=== PATIENT | female | born 1975 | race Caucasian/White ===

== ENCOUNTER 2020-04-01 15:33 | Outpatient (CLI) | payer OTHER, SELFPAY ==
--- NOTE | ~2020-04-01 | MM_ITS ---
EXAMINATION: MM screening frances BI w catarino HISTORY: Screening mammogram TECHNIQUE: Craniocaudal and mediolateral oblique 3-D tomosynthesis images were obtained and synthetic 2-D images were generated. CAD analysis was submitted and interpreted. COMPARISON: 03/21/2019, 03/18/2018 bilateral digital screening mammogram examinations BREAST PARENCHYMAL COMPOSITION: The breasts are extremely dense, which lowers the sensitivity of mamm ography. FINDINGS: There is a biopsy marker on the right There is no evidence of suspicious mass, calcificatio n, or architectural distortion to suggest malignancy in either breast. There has been no suspicious i nterval change. The patient history sheet indicates the patient can feel a lump in the left breast. For this reason, I would recommend a diagnostic left mammogram and left breast ultrasound, considering the dense breas t stroma. IMPRESSION: Patient feels a left breast lump; diagnostic left mammogram and left breast ultrasound examination ar e recommended BI-RADS Category 0: Incomplete: Needs additional imaging evaluation.. Reviewed, dictated and finalized at location A. IMPRESSION: Patient feels a left breast lump; diagnostic left mammogram and left breast ult rasound examination are recommended BI-RADS Category 0: Incomplete: Needs additional imaging evaluation..
== END 2020-04-01 15:34 | disposition home or self-care (01) ==
LOC: ANHIMG 15:35
PROVIDERS: PCP Family Medicine; Visit Provider Family Medicine
DX: Z12.31 Encounter for screening mammogram for malignant neoplasm of breast (principal)
CPT/HCPCS: 77063; 77067

== ENCOUNTER 2020-04-13 11:16 | Outpatient (CLI) | payer OTHER, SELFPAY ==
--- NOTE | ~2020-04-13 | MMUS_ITS ---
EXAMINATION: MM diagnostic mammo unilat LT, US breast LT limited HISTORY: Palpable left breast abnormality TECHNIQUE: Additional 3-D tomosynthesis images of the left breast were performed and synthetic 2-D im ages were generated. CAD analysis was submitted and interpreted. High resolution left breast ultrasou nd was performed. COMPARISON: Comparison to multiple prior studies sequentially, with oldest reviewed study dated 01/2017. FINDINGS: MAMMOGRAPHIC FINDINGS: The breasts are extremely dense, which lowers the sensitivity of mammography. There are no suspicious masses, calcifications or architectural distortion in the left breast to suggest malignancy. ULTRASOUND: Limited left breast ultrasound demonstrates an oval circumscribed hypoechoic mass at 11:00, 3 cm from the nipple without internal vascularity or posterior features measuring 4.5 x 3 x 4 mm. No other mas ses are identified. IMPRESSION: 1. Benign-appearing 4.5 mm hypoechoic left breast mass at 11:00, 3 cm from the nipple. This is likely a benign complicated cyst or intramammary lymph node. 2. Recommend 6 month follow-up left breast ultrasound. BI-RADS category 3, probably benign findings. Reviewed, dictated and finalized at location A. IMPRESSION: 1. Benign-appearing 4.5 mm hypoechoic left breast mass at 11:00, 3 cm from the nipple. This is likely a benign complicated cyst or intramammary lymph node. 2. Recommend 6 month follow-up left breast ultrasound. BI-RADS category 3, probably benign findings.
== END 2020-04-13 11:17 | disposition home or self-care (01) ==
PROVIDERS: PCP Family Medicine; Visit Provider Family Medicine
DX: R92.8 Other abnormal and inconclusive findings on diagnostic imaging of breast (principal)
CPT/HCPCS: 76642; 77065

== ENCOUNTER → 2021-07-22 13:26 | Outpatient (CLI) | payer OTHER, SELFPAY ==
--- NOTE | ~2021-07-22 | MM_ITS ---
EXAMINATION: MM screening frances BI w catarino HISTORY: Screening mammogram TECHNIQUE: Craniocaudal and mediolateral oblique 3-D tomosynthesis images were obtained and synthetic 2-D images were generated. CAD analysis was submitted and interpreted. COMPARISON: 04/13/2020 diagnostic left mammogram and limited left breast ultrasound 04/01/2020, 03/21/2019, 03/18/2018 bilateral digital screening mammogram examinations BREAST PARENCHYMAL COMPOSITION: The breasts are extremely dense, which lowers the sensitivity of mamm ography. FINDINGS: There is a biopsy marker on each side. History of bilateral benign breast biopsies There is no evidence of suspicious mass, calcification, or architectural distortion to suggest malignancy in either breast. There has been no suspicious interval change. IMPRESSION: 1. No mammographic evidence of malignancy. 2. Recommend routine screening mammography in one year. BI-RADS Category 2: Benign finding(s). Reviewed, dictated and finalized at location A.
== END ==
PROVIDERS: Visit Provider Obstetrics & Gynecology
DX: Z12.31 Encounter for screening mammogram for malignant neoplasm of breast (principal)
CPT/HCPCS: 77063; 77067

== ENCOUNTER 2022-08-29 10:12 | Outpatient (CLI) | payer OTHER, SELFPAY ==
--- NOTE | ~2022-08-29 | MM_ITS ---
EXAMINATION: MM screening frances BI w catarino HISTORY: Screening TECHNIQUE: Craniocaudal and mediolateral oblique 3-D tomosynthesis images were obtained and synthetic 2-D images were generated. CAD analysis was submitted and interpreted. COMPARISON: Comparison to multiple prior studies sequentially, with oldest reviewed study dated 01/2017. BREAST PARENCHYMAL COMPOSITION: The breasts are extremely dense, which lowers the sensitivity of mamm ography. FINDINGS: There is no evidence of suspicious mass, calcification, or architectural distortion to sugg est malignancy in either breast. There has been no suspicious interval change. IMPRESSION: 1. No mammographic evidence of malignancy. 2. Recommend routine screening mammography in one year. BI-RADS Category 1: Negative Reviewed, dictated and finalized at location A.
== END 2022-08-29 10:13 | disposition home or self-care (01) ==
PROVIDERS: PCP Nurse Practitioner Family; Visit Provider Obstetrics & Gynecology
DX: Z12.31 Encounter for screening mammogram for malignant neoplasm of breast (principal)
CPT/HCPCS: 77063; 77067

== ENCOUNTER 2023-11-06 10:45 | Outpatient (CLI) | payer OTHER, SELFPAY ==
--- NOTE | ~2023-11-06 | MMUS_ITS ---
EXAMINATION: MM diagnostic frances BI w catarino, US breast BI complete HISTORY: Bilateral breast pain TECHNIQUE: ML, MLO and CC 3-D tomosynthesis images of both breasts were performed and synthetic 2-D i mages were generated. CAD analysis was submitted and interpreted. High resolution complete bilateral breast ultrasound examination including all 4 quadrants and subareolar areas was performed. COMPARISON: 08/29/2022, 07/22/2021 bilateral screening mammogram examinations BREAST PARENCHYMAL COMPOSITION: The breasts are extremely dense, which lowers the sensitivity of mamm ography. FINDINGS: MAMMOGRAPHIC FINDINGS: There are bilateral breast biopsy marker; history of bilateral benign breast biopsies. No suspicious mass, architectural distortion, malignant calcification, skin thickening or retraction or significant new or developing density of either breast is detected ULTRASOUND: Right breast: 2:00 2 cm from nipple: Parallel circumscribed hypoechoic lesion measuring approximately 6.2 x 2.7 x 5 .3 mm, with some posterior shadowing. No internal vascularity is noted. The posterior shadowing is of concern. Consider ultrasound-guided biopsy. 9:00 3 cm from nipple: Parallel circumscribed oval 8.2 x 4.8 x 7.1 mm sonolucency with through transm ission posterior enhancement, most consistent with benign simple cyst. Left breast: 1:00 3 cm from nipple: Minimally septated 9.6 x 10.4 x 4.3 mm cyst, with through transmission posteri or enhancement, benign in appearance 11:00 5 cm from nipple: Parallel circumscribed 8.2 x 3.5 x 7.3 mm hypoechoic lesion without internal vascularity or posterior shadowing, benign in appearance IMPRESSION: Shadowing right breast 2:00 6.2 x 2.7 x 5.3 mm lesion; ultrasound-guided biopsy is recommended BI-RADS Category 4: Suspicious abnormality; biopsy should be considered Dr. Dalton telephoned the report on 11/06/2023 at 1510 hours to voicemail at [phone]. Reviewed, dictated and finalized at location A. NING DEVELOPMENT SPECIALIST IMPRESSION: Shadowing right breast 2:00 6.2 x 2.7 x 5.3 mm lesion; ultrasound-guided biopsy is recommended BI-RADS Category 4: Suspicious abnormality; biopsy should be considered Dr. Dalton telephoned the report on 11/06/2023 at 1510 hours to voicemail at [phone]. IMPRESSION: Shadowing right breast 2:00 6.2 x 2.7 x 5.3 mm lesion; ultrasound-guided biopsy is recommended BI-RADS Category 4: Suspicious abnormality; biopsy should be considered Dr. Dalton telephoned the report on 11/06/2023 at 1510 hours to voicemail at [phone].
== END 2023-11-06 10:46 | disposition home or self-care (01) ==
LOC: ANHIMG 10:48
PROVIDERS: PCP Nurse Practitioner Family; Visit Provider Physician Assistant
DX: R92.8 Other abnormal and inconclusive findings on diagnostic imaging of breast (principal); N64.4 Mastodynia
CPT/HCPCS: 76641; 77062; 77066; G0279

== ENCOUNTER 2025-07-03 09:49 | Outpatient (CLI) | payer OTHER, SELFPAY ==
--- NOTE | ~2025-07-03 | US_ITS ---
EXAMINATION: US pelvic complete w TV INDICATION: Menometrorrhagia Comparison:Excessive and frequent menstruation TECHNIQUE: Multiple transabdominal and endovaginal sonographic images of the pelvis performed. FINDINGS: The uterus measures 9.9 x 5 x 5.8 cm. The endometrial complex measures 11 mm possible endometrial mass measuring 11 mm. There is a hypoechoic 11 mm mass abutting the endometrium. Anteriorly there is a 1.9 cm fibroid. The right ovary measures 2.6 x 1.9 x 2.3 cm and the left ovary measures 4.3 x 2.5 x 3.6 cm. There are small follicles in each ovary. Normal doppler signal in both ovaries. There is no free fluid in the pelvis. There are no abnormal masses seen on either side. IMPRESSION: 1. Hypoechoic mass abutting or involving the endometrium measuring 11 mm. Differential diagnosis includes submucosal fibroid and polyp. 2: Uterine fibroid anteriorly measuring 1.9 cm. Reviewed, dictated and finalized at location O. IMPRESSION: 1. Hypoechoic mass abutting or involving the endometrium measuring 11 mm. Diffe rential diagnosis includes submucosal fibroid and polyp. 2: Uterine fibroid anteriorly measuring 1.9 cm.
== END 2025-07-03 09:50 | disposition home or self-care (01) ==
PROVIDERS: PCP Obstetrics & Gynecology; Visit Provider Obstetrics & Gynecology
DX: N92.1 Excessive and frequent menstruation with irregular cycle (principal); D25.9 Leiomyoma of uterus, unspecified
CPT/HCPCS: 76830; 76856

== ENCOUNTER 2025-08-10 08:12 | Outpatient (CLI) | payer OTHER, SELFPAY ==
--- OUTSIDE RECORDS SUMMARY | 2003-08-31 19:00 | XMS_ITS | Continuity of Care Document ---
Author Organization [facility] Address [address] [place] [address] [address] [place] [address] Phone Care Team Providers Care Prepress Technician Name Role Phone Eden OD, Som Unavailable Unavailable Advance Directives Directive Yes / No Effective Date File Name No Information Encounters Encounter Description Practice Location Reason(s) For Visit Diagnoses Date Provider Providers Copied on Encounter [facility], [address], [place], [place], [id number], [place] tel:[phone] [facility] [place] No Information Aug- 1-200 3 Eden OD Som. [address] [facility] [place] , [address], [place], [address], [place]. tel:[phone] Family History Family Member Type Diagnosis Age At Onset No Information Payers Payer name Insurance type Covered alliance party ID Authoriza tion(s) No Information Social [...]
--- OUTSIDE RECORDS SUMMARY | 2025-08-10 08:21 | XMS_ITS | Encounter Summary ---
Author Organization [facility] Address [address] [place] [address] Care Team Providers Care Cdc Associate Name Role Phone Nik Trujillo MD Primary Care Provider [phone] Encounter Details Date Type Department Care Team (Late st Contact Info) Description 09/27/2020 Lab Requisition [facility] DermPath Lab [address] [place] [address] Mauricio Norman MD [address] [facility] [place] [address] Social History Tobacco Use Types Packs/Day Years Used Date Smoking Tobacco: Never Assessed Comments Unknown Sex and Gender Information Value Date Recorded Sex Assigned at Not on file Legal Sex Female 3:29 PM 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 Gender Identity Not on file Sexual Orientation Not on file documented as of this encounter Plan of Treatment Not on file documented as of this encounter Procedures Procedure Name Priority Date/Time Associated Diagnosis Comments DERMATOPATHOLOGY Routine 09/23/2020 12:0 0 AM SOCIAL 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 documented in this encounter Results * DERMATOPATHOLOGY (09/23/2020 12:00 AM SOCIAL 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) Case Report Dermatopathology Report Case: [id number] Authorizing Provider: Mauricio Norman MD Collected: 09/23/2020 12:00 AM Ordering Location: [facility] DermPath Lab Received: 09/27/2020 06:44 AM Pathologist: Alyssa Reid MD Specimen: Skin, left mid back 0 2:41 PM [facility] DERMATOPATHOLOGY LABORATORY Final Diagnosis Specimen A. SKIN, left mid back: LENTIGINOUS MELANOCYTIC NEVUS, COMPOUND TYPE, IRRITATED (COMPOUND MELANOCYTIC NEVUS WITH ARCHITECTURAL DISORDER) (D22.5) 0 2:41 PM [facility] DERMATOPATHOLOGY LABORATORY at 1441 SOCIAL 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 Clinical History Nevus vs MM. Path#[id number] 0 2:41 PM [facility] DERMATOPATHOLOGY LABORATORY Gross Description Specimen A: Received is one formalin filled container labeled with the patient's name and designated left mid back. The specimen consists of a shave biopsy measuring 4x3x1 mm. Jar 0. 0 2:41 PM [facility] DERMATOPATHOLOGY LABORATORY Microscopic Description Specimen A. SKIN, left mid back: This is a compound nevus. There is melanin pigment in the stratum corneum. There is architectural disorder characterized by a lentiginous proliferation of melanocytes between irregular nevus nests of cells along the dermal epidermal junction. There is underlying fibroplasia of the papillary dermis. The intradermal component is bland in appearance and matures with depth. (Compound Maxi's Nevus or Compound Dysplastic Nevus) 0 2:41 PM [facility] DERMATOPATHOLOGY LABORATORY Disclaimer An external and internal positive and negative controls are appropriate for the histochemical, immunohistochemical and immunofluorescence stain(s) in this case (if any), except where stated explicitly. The performance characteristics of the stain(s) cited in this report were developed and its performance characteristic determined by the Dermatopathology Laboratory at [facility], directed by Dr. Audrey Reid. These tests need not be, and therefore are not, approved by the [place] Food and Drug Administration. The tests are used for clinical purposes. Billing Codes Specimen Charges Stain Charges 40292 1 0 2:41 PM [facility] DERMATOPATHOLOGY LABORATORY Embedded Images 0 2:41 PM [facility] DERMATOPATHOLOGY LABORATORY Pathology/Cytolog y TISSUE SPECIMEN FROM SKIN / Unknown 09/23/2020 09/27/2020 6:44 AM [facility] us Mauricio Norman MD LAB - PATHOLOGY/CYTOLOGY ORDER SAMI Final Result DERMATOPATHOLOGY LABORATORY [facility] - Department of Dermatology [facility] Medicine [facility], 3[address] [phone] documented in this encounter Visit Diagnoses Not on filedocumented in this encounter Care Teams Cdc Associate Relationship Specialty Start Date End Date Nik Trujillo MD [address] [address] PCP - General 09/24/20 documented as of this encounter
--- OUTSIDE RECORDS SUMMARY | 2025-08-10 08:22 | XMS_ITS | Patient Health Record ---
Author Organization [facility] Address [address] [place], [place] [address] Care Team Providers Care Clinical Dental Technician Name Role Phone ISABELLA Patel Unavailable [phone] Reason For Referral No Information Medications Medication SIG (Take, Route, Frequency, Duration) Notes Start Date End Date Status Nabumetone 500 MG Oral Tablet ORAL nabumetone 500 MG Oral TabletOriginal Medicationnabumetone 500 MG Oral Tablet *Reorder from Social 2 Step for eRx and Interaction Alerts* 09/19/2012 Active Plan Of Treatment No Information Insurance Providers Payer Name Payer Address Payer Phone Subscriber Number Group Number Insured Name Patient Relationship to Insured Coverage Start Date Coverage End Date [facility] [address] [address] [place] [id number] GILBERT ZHANG Self - patient is the insured
--- OUTSIDE RECORDS SUMMARY | 2025-08-10 08:22 | XMS_ITS | Clinical Summary ---
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 Gender Identity Not on file Sexual Orientation Not on file Plan of Treatment Health Maintenance Due Date Last Done Comments DTAP/TDAP/TD VACCINES (1 - Tdap) 01/15/1995 HEPATITIS B VACCINES (1 of 3 - 19+ 3-dose series) 01/15/1995 HPV/Cotest (21-29) 01/15/1997 CERVICAL CANCER SCREENING 01/15/2006 HPV/Cotest (30-65) 01/15/2006 PAP SMEAR 01/15/2006 COLORECTAL SCREENING 01/15/2021 Colorectal Cancer Screening 01/15/2021 FIT-DNA Q 3 years 01/15/2021 FIT/FOBT Q 1 year 01/15/2021 Flex Sig/CT Colonography Q 5 years 01/15/2021 BREAST CANCER SCREENING 11/06/2024 11/06/20 23, 07/22/2021, 04/13/2020 INFLUENZA VACCINE (#1) 2025 Procedures Procedure Name Priority Date/Time Associated Diagnosis Comments MAMMO DIAG UNI LEFT 3D SRIKANTH W OR WO CAD Routine 11/06/2023 10:18 AM WAREHOUSE OPERATOR from Last 3 Months or Most Recently Relevant to Health Maintenance Results * MAMMO 3D SRIKANTH DIAGNOSTIC UNI LT W OR WO CAD (11/06/2023 10:18 AM WAREHOUSE OPERATOR) Anatomical Region Laterality Modality Breast Left Mammography Mikey SEXTON MAMMO ORDERABLES Edited Result - Final from Last 3 Months or Most Recently Relevant to Health Maintenance
--- OUTSIDE RECORDS SUMMARY | 2025-08-10 08:22 | XMS_ITS | Clinical Summary ---
Author Organization [facility] Address [address] [place] [address] Care Team Providers Care Manager Mechanical Maintenance Name Role Phone Nik Trujillo MD Primary Care Provider [phone] Source Comments [facility] Affiliates and Associated Physician Practices is amultiple site organization consisting of ambulatory clinics and hospital sitesin [place], [place], [place] and [place]. This disclosure is being madepursuant to the Care Everywhere program and may not contain all information available regarding this patient. 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 Gender Identity Not on file Sexual Orientation Not on file Plan of Treatment Health Maintenance Due Date Last Done Comments COLOGUARD (AGES 45-75) - COL ON CA SCREENING 1976 COLON MONITORING 1976 COLONOSCOPY - COLON CA SCREENING 1976 CT COLONOGRAPHY - COLON CA SCREENING 1976 Colorectal Cancer Screening 1976 FIT - COLON CA SCREENING 1976 FLEX SIG - COLON CA SCREENING 1976 LIPID TESTING 1976 MAMMOGRAM 1976 HIV SCREENING 01/15/1991 HEPATITIS C SCREENING 01/11/1994 DTAP/TDAP/TD VACCINES (1 - Tdap) 01/15/1995 HEPATITIS B VACCINE (1 of 3 - 19+ 3-dose series) 01/15/1995 DEPRESSION SCREENING 11/12/2024 COVID-19 VACCINE (1 2023-2 5 season) 2025 INFLUENZA VACCINE (#1) 2025 ZOSTER VACCINE (1 of 2) 01/15/2026 HIB VACCINE Aged Out No longer eligi ble based on patient's age to complete this topic HPV VACCINE Aged Out No longer eligi ble based on patient's age to complete this topic MENINGOCOCCAL (Group B) VACC INE SHARED DECISION-MAKING Aged Out No longer eligibl e based on patient's age to complete this topic MENINGOCOCCAL GROUPS A/C/Y/W VACCINE Aged Out No longer eligible b ased on patient's age to complete this topic Insurance [facility] Care Teams Manager Mechanical Maintenance Relationship Specialty Start Date End Date Nik Trujillo MD [address] [address] PCP - General 09/24/20
[2025-08-10 08:44] LABS: Hematocrit 29.4 % (37.0-47.0); Hemoglobin 8.4 g/dL (12.0-15.0)
== END 2025-08-10 08:13 | disposition home or self-care (01) ==
LOC: ANHLAB 08:14
PROVIDERS: PCP Family Medicine; Visit Provider Obstetrics & Gynecology
DX: D50.0 Iron deficiency anemia secondary to blood loss (chronic) (principal)
CPT/HCPCS: 36415; 85014; 85018

== ENCOUNTER 2025-08-12 00:49 | Day surgery (SDC) | payer OTHER, SELFPAY ==
--- OUTSIDE RECORDS SUMMARY | 2003-08-31 19:00 | XMS_ITS | Continuity of Care Document ---
Author Organization [facility] Address [id number] [place] [address] [address] [place] [address] Phone Care Team Providers Care Legal Instruments Examiner Name Role Phone Eden OD, Som Unavailable Unavailable Advance Directives Directive Yes / No Effective Date File Name No Information Encounters Encounter Description Practice Location Reason(s) For Visit Diagnoses Date Provider Providers Copied on Encounter [facility], [address], [place], [place], [id number], [place] tel:[phone] [facility] [place] No Information Aug- 1-200 3 Eden OD Som. [address] [facility] [place] , [address], [place], [address], [place]. tel:[phone] Family History Family Member Type Diagnosis Age At Onset No Information Payers Payer name Insurance type Covered constitution party ID Authoriza tion(s) No Information Social History Type Description Quantity Date Captured Comments Sex Female Smoking Status No Information Chief Complaint And Reason For Visit No Information Reason For Referral Reason For Referral No Information History Of Present Illness Encounter Date Complaint History Of Prese nt Illness No Information Functional Status Date Functional Assessmen t No Information Instructions Date Instruction Additional Infor mation No Information Assessments Type Assessment Date No Information Patient Care Teams Name Effective Dates (start - stop) Status Members No Information
[2025-07-30 09:38] VITALS: BMI 20.5
--- NOTE | 2025-07-30 10:12 | PC.NURSE ---
[facility] has started construction of its new state of the art ER which will open Spring 2026. With this, we anticipate parking may be a challenge for some our surgical patients and families. Parking spaces are limited but are available for all Surgical, obstetrics, and ER patients sharing this lot. If you arrive and find you are having a hard time finding a parking space, please note that we understand the challenges, please drive around the hospital and park near Hospital Entrance 1. When you enter this entrance, you can ask a volunteer to direct or take you back to the surgical waiting area to check in. We appreciate everyone?s understanding of these expected challenges while we build for your future. Report to the Outpatient Waiting Room, entrance under the green pavilion located off [address], at time _1200_ on date _[id number]_. Planned Procedure Time: _2pm_.? Time changes happen often and if your time is changed the preop area will call you the afternoon before. - You and your visitor will be asked to self-screen and do not enter if you have any COVID symptoms. Please call surgeon if you need to reschedule. - A mask is optional within the hospital at this time. Patients may have clear liquids (water, carbonated beverages, clear teas, apple juice) until 3 hours prior to surgery with a maximum of 20 ounces. - No food from midnight until time of surgery and no smoking, or chewing tobacco (or any form of nicotine). No chewing gum, candy or mints. Take only the following medications with a SIP of water on the morning of surgery: DO NOT STOP ANY OF YOUR OTHER PRESCRIPTION MEDICATIONS PRIOR TO SURGERY EXCEPT THE FOLLOWING Hold all vitamins and supplements for 3 days per anesthesiologist. Medications to discontinue per physician Date to take last [id number]___ Please no make-up, nail yoruba, hairspray, perfume, deodorant, or body powder the day of surgery.? No jewelry (including any body piercings) or valuables the day of surgery, leave them at home.? Please take a shower or bath the night before, or the morning of, surgery with an antibacterial soap.? Wear comfortable, loose fitting clothing.? - Jewelry must be removed prior to entering the operating room.? Rings and piercings that are not removed may be cut off. - The hospital will not accept responsibility for valuables.? - Please leave all valuables, including medications, at home the day of surgery. If you are going home after surgery, a licensed helper/driver must drive you home.? - NO public transportation without another adult if you receive anesthesia. - We recommend that an adult stay with you for 24 hours following discharge. - We also recommend that you do not drive, make important decision, drink alcoholic beverages, or take any drugs that were not prescribed by your health care provider for at least 24 hours after your discharge time. Follow any additional instructions given to you from your surgeon. Telephone instructions given to __Amrita__and asked if any additional questions and then verbalized understanding. Patient advised to call surgeon office or pre surgery nurse liaison [phone] if any additional questions.
--- OUTSIDE RECORDS SUMMARY | 2025-08-12 00:52 | XMS_ITS | Patient Health Record ---
Author Organization [facility] Address [address] [place], [place] [address] Care Team Providers Care Marine Equipment Sales Engineer Name Role Phone ISABELLA Patel Unavailable [phone] Reason For Referral No Information Medications Medication SIG (Take, Route, Frequency, Duration) Notes Start Date End Date Status Nabumetone 500 MG Oral Tablet ORAL nabumetone 500 MG Oral TabletOriginal Medicationnabumetone 500 MG Oral Tablet *Reorder from [employer] for eRx and Interaction Alerts* 09/19/2012 Active Plan Of Treatment No Information Insurance Providers Payer Name Payer Address Payer Phone Subscriber Number Group Number Insured Name Patient Relationship to Insured Coverage Start Date Coverage End Date [facility] [address] [address] [place] [address] [id number] GILBERT ZHANG Self - patient is the insured
--- OUTSIDE RECORDS SUMMARY | 2025-08-12 00:52 | XMS_ITS | Clinical Summary ---
Author Organization [facility] Address [address] [address] Phone Care Team Providers Care Plasma Processing Centrifuge Operator Name Role Phone Unavailable Primary Care Provider Unavailabl e Social History Tobacco Use Types Packs/Day Years Used Date Smoking Tobacco: Never Assessed Comments Unknown Sex and Gender Information Value Date Recorded Sex Assigned at Not on file Legal Sex Female 9:27 AM HR COORDINATOR Gender Identity Not on file Sexual Orientation [...] OR WO CAD Routine 11/06/2023 10:18 AM HR COORDINATOR from Last 3 Months or Most Recently Relevant to Health Maintenance Results * MAMMO 3D SRIKANTH DIAGNOSTIC UNI LT W OR WO CAD (11/06/2023 10:18 AM HR COORDINATOR) Anatomical Region Laterality Modality Breast Left Mammography Mikey SEXTON MAMMO ORDERABLES Edited Result - Final from Last 3 Months or Most Recently Relevant to Health Maintenance
--- OUTSIDE RECORDS SUMMARY | 2025-08-12 00:52 | XMS_ITS | Clinical Summary ---
Author Organization [facility] Address [address] [place] [address] Care Team Providers Care Latin American Studies Professor Name Role Phone Zachary Bennett MD Primary Care Provider [phone] Allergies No known active allergies Medications ofloxacin 0.3 % ophthalmic solution INSTILL 1 DROP INTO BOTH EYES 4 TIMES A DAY FOR 7 DAYS. 02/14/2020 Active Active Problems No known active problems Family History Medical History Relation Comments Hyperlipidemia Father Hypertension Father Hypertension Mother Relation Status Comments Father Alive Mother Alive Social History Tobacco Use Types Packs/Day Years Used Date Smoking Tobacco: Never Smokeless Tobacco: Never Alcohol Use Standard Drinks/Week Comments Not Currently 0 (1 standard drink = 0.6 oz pur e alcohol) PHQ-2 Answer Date Recorded PHQ-2 Score - If the patient scores above 3, please move on to questions 3-9 0 02/28/2021 Comments Unknown Sex and Gender Information Value Date Recorded Sex Assigned at Not on file Legal Sex Female 4:14 PM CDT Gender Identity Not on file Sexual Orientation Not on file Last Filed Vital Signs Vital Sign Reading Time Taken Comments Blood Pressure 121/73 02/28/2021 10:54 AM CDT Pulse 66 02/01/2021 9:39 AM CDT Temperature 36.7 C (98 F) 02/28/2021 10:24 AM CDT Respiratory Rate 18 02/01/2021 9:39 AM CDT Oxygen Saturation 99% 02/01/2021 9:39 AM CDT Inhaled Oxygen Concentration - - Weight 55.8 kg (123 lb) 02/28/2021 10:24 AM CDT Height 165.1 cm (5' 5) 02/28/2021 10:24 AM CDT Body Mass Index 20.47 02/28/2021 10:24 AM CDT Plan of Treatment Health Maintenance Due Date Last Done Comments Cervical Cancer Screening Pa p Smear (Age 30 to 64) Every 3 Years 1976 Colorectal Cancer Screening Colonoscopy (10 Years) 1976 Annual Physical 01/15/1979 Hepatitis C 01/15/1994 DTaP, Tdap and Td Vaccines ( 1 - Tdap) 01/15/1995 Hepatitis B Vaccines (1 of 3 - 19+ 3-dose series) 01/15/1995 Cervical Cancer Screening Pa p with HPV Testing (Age 30 to 64) Every 5 Years 01/15/2006 Cervical Cancer Screening with HPV 01/15/2006 Mammogram Screening 2016 COVID-19 Vaccine (2023-2 5 season) 2025 Meningococcal B Vaccine Aged Out No l onger eligible based on patient's age to complete this topic Meningococcal Vaccine Aged Out No miranda bettie eligible based on patient's age to complete this topic Pneumococcal Vaccine: Pediat rics (0 to 5 Years) and At-Risk Patients (6 to 49 Years) Aged Out No longer eligible b ased on patient's age to complete this topic RSV Immunizations Under 20 Months Aged Out No longer eligible based on patient's age to complete this topic Insurance [facility] Care Teams Latin American Studies Professor Relationship Specialty Start Date End Date Zachary Bennett MD [address] [place] [address] PCP - General OBGYN 02/01/21
--- OUTSIDE RECORDS SUMMARY | 2025-08-12 00:52 | XMS_ITS | Encounter Summary ---
Author Organization [facility] Address [address] [place] [address] Care Team Providers Care Equipment Operator/Laborer/Supervisor Name Role Phone Nik Trujillo MD Primary Care Provider Encounter Details Date Type Department Care Team (Late st Contact Info) Description 09/27/2020 Lab Requisition [facility] DermPath Lab [address] [place] [address] Mauricio Norman MD [address] [place] [address] Social History Tobacco Use Types Packs/Day Years Used Date Smoking Tobacco: Never Assessed Comments Unknown Sex and Gender Information Value Date Recorded Sex Assigned at Not on file Legal Sex Female 3:29 PM OPERATIONS PROJECT MANAGER Gender Identity Not on file Sexual Orientation Not on file documented as of this encounter Plan of Treatment Not on file documented as of this encounter Procedures Procedure Name Priority Date/Time Associated Diagnosis Comments DERMATOPATHOLOGY Routine 09/23/2020 12:0 0 AM OPERATIONS PROJECT MANAGER documented in this encounter Results * DERMATOPATHOLOGY (09/23/2020 12:00 AM OPERATIONS PROJECT MANAGER) Case Report Dermatopathology Report Case: [id number] Authorizing Provider: Mauricio Norman MD Collected: 09/23/2020 12:00 AM Ordering Location: [facility] Derm[facility] Lab Received: 09/27/2020 06:44 AM Pathologist: Alyssa Reid MD Specimen: Skin, left mid back 0 2:41 PM [facility] DERMATOPATHOLOGY LABORATORY Final Diagnosis Specimen A. SKIN, left mid back: LENTIGINOUS MELANOCYTIC NEVUS, COMPOUND TYPE, IRRITATED (COMPOUND MELANOCYTIC NEVUS WITH ARCHITECTURAL DISORDER) (D22.5) 0 2:41 PM [facility] DERMATOPATHOLOGY LABORATORY at [address]41 OPERATIONS PROJECT MANAGER Clinical History Nevus vs MM. Path#[id number] 0 2:41 PM [facility] DERMATOPATHOLOGY LABORATORY Gross Description Specimen A: Received is one formalin filled container labeled with the patient's name and designated left mid back. The specimen consists of a shave biopsy measuring 4x3x1 mm. Jar 0. 0 2:41 PM [facility] DERMATOPATHOLOGY LABORATORY Microscopic Description [...] or Compound Dysplastic Nevus) 0 2:41 PM [facility] DERMATOPATHOLOGY LABORATORY Disclaimer An external and internal positive and negative controls are appropriate for the histochemical, immunohistochemical and immunofluorescence stain(s) in this case (if any), except where stated explicitly. The performance characteristics of the stain(s) cited in this report were developed and its performance characteristic determined by the Dermatopathology Laboratory at [facility], directed by Dr. Audrey Reid. These tests need not be, and therefore are not, approved by the [place] Food and Drug Administration. The tests are used for clinical purposes. Billing Codes Specimen Charges Stain Charges 49820 1 0 2:41 PM [facility] DERMATOPATHOLOGY LABORATORY Embedded Images 0 2:41 PM [facility] DERMATOPATHOLOGY LABORATORY Pathology/Cytolog y TISSUE SPECIMEN FROM SKIN / Unknown 09/23/2020 09/27/2020 6:44 AM [facility] us Mauricio Norman MD LAB - PATHOLOGY/CYTOLOGY ORDER SAMI Final Result DERMATOPATHOLOGY LABORATORY [facility] - Department of Dermatology [facility] Medicine [facility] [phone] documented in this encounter Visit Diagnoses Not on filedocumented in this encounter Care Teams Equipment Operator/Laborer/Supervisor Relationship Specialty Start Date End Date Nik Trujillo MD [address] [address] PCP - General 09/24/20 documented as of this encounter
--- OUTSIDE RECORDS SUMMARY | 2025-08-12 00:52 | XMS_ITS | Data Portability ---
Author Organization [facility], Main Office Address [address] [place] [address] Assessment No assessment recorded. Plan of Treatment Reminders Order Date Submit Date Provider Last Modified By Organization Details Last Modified Time Details Appointments None record ed. Lab None record ed. Referral None record ed. Procedures None record ed. Surgeries None record ed. Imaging None record ed. Medication Orders None record ed. Patient TargetsNo targets recorded. Patient InstructionsNo instructions recorded. Reason for Referral None Reported. Results Created Date Observation Date Name Description Value Unit Range Abnormal Flag Note LastModifiedBy Organization Detail LastModifiedTime 01/21/20 21 01/20/2021 urina lysis , dipst ick Leukocytes (reference range: negative alan/ l) Trace Not Available [address] , [address], [place], [address], 01/20/2021 09:51:39 01/21/20 21 01/20/2021 urina lysis , dipst ick Nitrite (reference rage: negative mg/dl) negati ve Not Available [address], [place], [address], 01/20/2021 09:51:39 01/21/20 21 01/20/2021 urina lysis , dipst ick Urobilinogen (reference range: 0.2-1 mg/dl) 0.2 Not Available [address], [place], [address], 01/20/2021 09:51:39 03/11/01/20/2021 urina lysis , dipst ick Protein (reference range: negative mg/dl) Negati ve Not Available [address] , [address], [place], [address], 01/20/2021 09:51:39 01/21/20 21 01/20/2021 urina lysis , dipst ick pH (reference range: 5-7) 6.0 Not Available [address] , [address], [place], [address], 01/20/2021 09:51:39 01/21/20 21 01/20/2021 urina lysis , dipst ick Blood (reference range: negative Alfredito/ l) Small Not Available [address] , [address], [place], [address], 01/20/2021 09:51:39 01/21/20 21 01/20/2021 urina lysis , dipst ick Specific [place] (reference range: 1.005-1.030) 1.020 Not Available [address] , [address], [place], [address], 01/20/2021 09:51:39 01/21/20 21 01/20/2021 urina lysis , dipst ick Ketone (reference range: negative mg/dl) Negati ve Not Available [address] , [address], [place], [address], 01/20/2021 09:51:39 01/21/20 21 01/20/2021 urina lysis , dipst ick Bilirubin (reference range: negative mg/dl) Negati ve Not Available [address] , [address], [place], [address], 01/20/2021 09:51:39 01/21/20 21 01/20/2021 urina lysis , dipst ick Glucose (reference range: negative mg/dl) Negati ve Not Available [address] , [address], [place], [address], 01/20/2021 09:51:39 01/21/20 21 01/20/2021 urina lysis , dipst ick Appearance Clear Not Available [address] , [address], [place], [address], 01/20/2021 09:51:39 01/21/20 21 01/20/2021 urina lysis , dipst ick Color Yellow Not Available [address] , [address], [place], [address], 01/20/2021 09:51:39 02/03/20 21 02/03/2021 lipid panel , serum cholesterol, total 148 mg/dL 100-19 9 Not Available [facility] ([facility]) [address] [place], [address], 02/03/2021 04:07:57 02/03/20 21 02/03/2021 lipid panel , serum triglyceride s 54 mg/dL 0-149 Not Available [facility] ([facility]) [address] [facility], [place], [address], 02/03/2021 04:07:57 02/03/20 21 02/03/2021 lipid panel , serum HDL cholesterol 77 mg/dL >39 Not Available [facility] ([facility]) [address] [place], [address], 02/03/2021 04:07:57 02/03/20 21 02/03/2021 lipid panel , serum VLDL cholesterol sarah 12 mg/dL 5-40 Not Available [facility] ([facility]) [address] [place], [address], 02/03/2021 04:07:57 02/03/20 21 02/03/2021 lipid panel , serum LDL chol calc ([facility]) 59 mg/dL 0-99 Not Available [facility] ([facility]) [address] [place], [address], 02/03/2021 04:07:57 02/03/20 21 02/03/2021 lipid panel , serum comment: director software quality assurance Not Available [facility] ([facility]) [address] [place], [address], 02/03/2021 04:07:57 02/03/20 21 02/03/2021 CMP, serum or plasm a glucose 86 mg/dL 65-99 Not Available [facility] ([facility]) [address] [place], [address], 02/03/2021 04:07:56 02/03/20 21 02/03/2021 CMP, serum or plasm a BUN 11 mg/dL 6-24 Not Available [facility] ([facility]) [address] [place], [address], 02/03/2021 04:07:56 02/03/20 21 02/03/2021 CMP, serum or plasm a creatinine 0.92 mg/dL 0.57-1 .00 Not Available [facility] ([facility]) [address] [place], [address], 02/03/2021 04:07:56 02/03/20 21 02/03/2021 CMP, serum or plasm a eGFR if nonafricn AM 75 mL/mi n/1.7 3 >59 Not Available [facility] ([facility]) [address] [place], [address], 02/03/2021 04:07:56 02/03/20 21 02/03/2021 CMP, serum or plasm a eGFR if africn AM 87 mL/mi n/1.7 3 >59 Not Available [facility] ([facility]) [address] [place], [address], 02/03/2021 04:07:56 02/03/20 21 02/03/2021 CMP, serum or plasm a BUN/creatini ne ratio 12 9-23 Not Available [facility] ([facility]) [address] [place], [address], 02/03/2021 04:07:56 02/03/20 21 02/03/2021 CMP, serum or plasm a sodium 138 mmol/ L 134-14 4 Not Available [facility] ([facility]) [address] [place], [address], 02/03/2021 04:07:56 02/03/20 21 02/03/2021 CMP, serum or plasm a potassium 4.8 mmol/ L 3.5-5. 2 Not Available [facility] ([facility]) [address] [place], [address], 02/03/2021 04:07:56 02/03/20 21 02/03/2021 CMP, serum or plasm a chloride 104 mmol/ L 96-106 Not Available [facility] ([facility]) [address] [place], [address], 02/03/2021 04:07:56 02/03/20 21 02/03/2021 CMP, serum or plasm a carbon dioxide, total 24 mmol/ L 20-29 Not Available [facility] ([facility]) [address] [place], [address], 02/03/2021 04:07:56 02/03/20 21 02/03/2021 CMP, serum or plasm a calcium 9.3 mg/dL 8.7-10 .2 Not Available [facility] ([facility]) [address] [place], [address], 02/03/2021 04:07:56 02/03/20 21 02/03/2021 CMP, serum or plasm a protein, total 6.8 g/dL 6.0-8. 5 Not Available [facility] ([facility]) [address] [facility] [place], [address], 02/03/2021 04:07:56 02/03/20 21 02/03/2021 CMP, serum or plasm a albumin 4.4 g/dL 3.8-4. 8 Not Available [facility] ([facility]) [address] [place], [address], 02/03/2021 04:07:56 02/03/2002/03/2021 CMP, serum or plasm a globulin, total 2.4 g/dL 1.5-4. 5 Not Available [facility] ([facility]) [address] [place], [address], 02/03/2021 04:07:56 02/03/2002/03/2021 CMP, serum or plasm a A/G ratio 1.8 1.2-2. 2 Not Available [facility] ([facility]) [address] [place], [address], 02/03/2021 04:07:56 02/03/2002/03/2021 CMP, serum or plasm a bilirubin, total 1.3 mg/dL 0.0-1. 2 above high normal Not Available [facility] ([facility]) [address] [place], [address], 02/03/2021 04:07:56 02/03/20 21 02/03/2021 CMP, serum or plasm a alkaline phosphatase 48 IU/L 39-117 Not Available [facility] ([facility]) [address] [place], [address], 02/03/2021 04:07:56 02/03/20 21 02/03/2021 CMP, serum or plasm a AST (SGOT) 23 IU/L 0-40 Not Available [facility] ([facility]) [address] [facility], [place], [address], 02/03/2021 04:07:56 02/03/20 21 02/03/2021 CMP, serum or plasm a ALT (SGPT) 13 IU/L 0-32 Not Available [facility] ([facility]) [address] [facility], [place], [address], 02/03/2021 04:07:56 11/07/20 23 11/06/2023 MAMMO , diagn ostic , digit al, bilat eral No observ ation record ed. [address], [address], 11/21/2023 16:51:12 11/09/20 23 04/13/2020 medic al recor d reque st* No observ ation record ed. [address] [address], [place], [address], 11/21/2023 14:44:44 11/29/19 24 11/06/2023 mammo gram, follo w up* No observ ation record ed. [address] [address], [place], [address], 11/30/2023 13:36:47 Result Notes None recorded. Problems Name Problem SNOMED Code Status Onset Date Resolution Date Notes Provider Name and Address Organization Details Recorded Time Migraine 11345216 Active 2018 Not Available [employer] 3 20:40:05 Pain of left breast 3221261860 Active 2022 Vamsi Waller MD [address], [facility] [address], [place], [address] , [facility] [employer] [facility] 3 11:01:52 Mammograph y abnormal 634721687 Active 2022 Farnk Arthur RN null, [facility] [employer] [facility] 3 11:14:38 Mastodynia of bilateral breasts 7097813239427 9109 Active 2022 RENAE Noguera, [facility] [employer] [facility] 3 11:09:01 Problem Notes None recorded. Procedures Surgical History Date Name Laterality Status Provider Name and Address Organization Details Recorded Time 11/30/19 24 Breast Biopsy completed Frank Arthur RN ND [facility] [employer] [facility] 12/06/2023 16:25:31 delivery completed Not Available [facility] 01/10/2023 20:39:23 Tonsillectomy completed Not Available [facility] 01/10/2023 20:39:23 Imaging Results None recorded. Procedure Notes None recorded. Medical Equipment None Reported. Allergies No known drug allergies Medications Name Sig Start Date Stop Date Status Note LastModified by Organization Details LastModified Time azithromyci n 250 mg tablet Take 2 TABLET EVERY DAY by oral route for 1 day. Than 1 tablet for 4 days 04/24 completed Not Available Not Available Not Available ofloxacin 0.3 % eye drops INSTILL 1 DROP INTO BOTH EYES 4 TIMES A DAY FOR 7 DAYS. 01/20 completed Not Available Not Available Not Available prednisone 20 mg tablet 12/20 completed Not Available Not Available Not Available rizatriptan 10 mg disintegrat ing tablet 1 at onset of headache and may repeat in 2 hours as needed. 01/20 completed Not Available Not Available Not Available Restasis 0.05 % eye drops in a dropperette 12/20 completed Not Available Not Available Not Available PreviDent 5000 Booster Plus 1.1 % dental paste 12/20 completed Not Available Not Available Not Available Restasis MultiDose 0.05 % eye drops 12/20 completed Not Available Not Available Not Available Vitals Date Recorded Body mass index (BMI) Body height Oxygen saturation Oxygen saturation in Arterial blood by Pulse oximetry Heart rate Body temperature Body weight Systolic And Diastolic Provider Name and Address Organization Details Last Updated DateTime 1 20 kg/m2 165.1 cm 98 % 98 % 76 /min 97.2 [degF] 33337.0 8 g 100/60 mm[Hg] Not Available [facility] 3 20:39:28 Date Recorded Body height Body mass index (BMI) Body weight Body temperature Oxygen saturation Oxygen saturation in Arterial blood by Pulse oximetry Heart rate Systolic And Diastolic Provider Name and Address Organization Details Last Updated DateTime 3 165.1 cm 19.5 kg/m2 99801.3 1 g 98.1 [degF] 98 % 98 % 97 /min 118/62 mm[Hg] Rachel Nino CMA [facility] 3 10:38:40 Date Recorded Body mass index (BMI) Body height Oxygen saturation Oxygen saturation in Arterial blood by Pulse oximetry Heart rate Body temperature Body weight Systolic And Diastolic Provider Name and Address Organization Details Last Updated DateTime 2 19.6 kg/m2 165.1 cm 99 % 99 % 71 /min 97.9 [degF] 33112.9 g 112/62 mm[Hg] Not Available [facility] 3 20:39:28 Date Recorded Body mass index (BMI) Body height Oxygen saturation Oxygen saturation in Arterial blood by Pulse oximetry Heart rate Body temperature Body weight Systolic And Diastolic Provider Name and Address Organization Details Last Updated DateTime 2 19.8 kg/m2 165.1 cm 99 % 99 % 79 /min 97.7 [degF] 47513.4 9 g 124/64 mm[Hg] Not Available [facility] 3 20:39:28 Social History Question Answer Notes LastModified by [employer] Details LastModified Time Tobacco Smoking Status Never Smoker Not Available [facility] 01/10/2023 20:39:09 What Is Your Level Of Caffeine Consumption? Occasional [id number] Information not available 01/10/2023 What Type Of Diet Are You Following? REGULAR [id number] Information not available 01/10/2023 Sex: Unknown Functional Status Question Answer Note LastModified by [employer] Details LastModified Time Do you use any illicit or recreational drugs? No [id number] Information not available 01/10/2023 What is your level of alcohol consumption? None [id number] Information not available 01/10/2023 What is your exercise level? Occasional [id number] Information not available 01/10/2023 Mental Status None recorded. Family History Relationship Description Onset Age of this Age Resolved Age Notes LastModified by Organization Details LastModified Time Father Hypertensive disorder [id number] Not available 01/10/2023 20:39:23 Father Hyperlipidem ia [id number] Not available 01/10/2023 20:39:24 Mother Hypertensive disorder [id number] Not available 01/10/2023 20:39:24 Medical History No medical history recorded. Gynecological HistoryNo gynecological history recorded. Obstetrics History GPAL:G 0 P 0 0 0 0 Past Encounters Encounter ID Performer Location Encounter Start Date Encounter Closed Date Diagnosis/Indication Diagnosis SNOMED-CT Code Diagnosis ICD10 Code Diagnosis IMO Codes Diagnosis Note [id number] Vamsi Waller MD [facility] [address] [facility] [place] [address] 01/20/2021 00:00:00 01/20/2021 14:12:14 [id number] Vamsi Waller MD [facility] [address] [place] [address] 03/09/2022 00:00:00 03/09/2022 09:57:47 [id number] Vamsi Waller MD [facility] [address] [facility] [place] [address] 07/13/2022 00:00:00 07/13/2022 22:06:53 [id number] Vamsi Waller MD [facility] [address] [facility] [place] [address] 02/09/2023 10:31:54 02/09/2023 12:09:41 Pain of left breast 5927667614 N64.4 At next mammogram pt will need a diagnostic mammogram if still having breast pain not associated with menses. Health Concerns Section Related Observation LastModified by Organization Detai ls LastModified Time None Recorded Concern Status LastModified by Organization Details LastModified Time None Recorded Advance Directives Directive None Recorded Payers Insurance Date Sequence Insurance Name Policy Number Policy Dahl Covered Member ID Dahl Member ID Guarantor Name 02/06/2023 1 [employer] [id number] Chapo Correia [id number] Amrita Correia Notes Date Note Type Note Provider Name and Address Organization Details Recorded Time 02/09/2023 text/html Here today c/o soreness of breast it is on the left side. Last mammogram was in 09/02. Has had it checked several times. When close to period will get more pain. No skin color change or nipple d/c. Gets mammogram at [facility]. Not due until 09/03 Vamsi Waller MD [address] [facility] [address], [place], [address], [facility] [employer] 02/09/2023 16:05:58 OBGyn Episode No OBEpisode recorded.
--- OUTSIDE RECORDS SUMMARY | 2025-08-12 00:52 | XMS_ITS | Clinical Summary ---
Author Organization [facility] Address [address] [place] [address] Care Team Providers Care Property Accountant Name Role Phone Nik Trujillo MD Primary Care Provider [phone] [facility] Affiliates and Associated Physician Practices is amultiple site organization consisting of ambulatory clinics and hospital sitesin [place], [place], [place] and [place]. This disclosure is being madepursuant to the Care Everywhere program and may not contain all information available regarding this patient. Last updated 18.[facility] [email or web address] Social History Tobacco Use Types Packs/Day Years Used Date Smoking Tobacco: Never Assessed Comments Unknown Sex and Gender Information Value Date Recorded Sex Assigned at Not on file Legal Sex Female 3:29 PM [employer] Gender Identity Not on file Sexual Orientation [...] patient's age to complete this topic Insurance [facility] [address] Care Teams Property Accountant Relationship Specialty Start Date End Date Nik Trujillo MD [address] [address] PCP - General 09/24/20
--- NOTE | 2025-08-12 10:31 | PM.IMHP ---
H&P: HPI History of Present Illness Date/Time: 08/12/25 10:31 Chief Complaint: Heavy bleeding Narrative: 50 y/o who has had prolonged and heavy episodes of vaginal bleeding. Ultrasound exam shows a 1.9cm anterior uterine fibroid, but also a hypoechoic mass abutting or involving the endometrium measuring 11mm. Her hgb was 7.2 recently. Review of Systems Review of Systems: All systems reviewed & are unremarkable except as noted in HPI and below PMFSH Past Medical History Medical History Headache Anemia Allergies Surgical History Surgical History Hx of LASIK H/O tubal ligation History of breast biopsy Previous section History of dilatation and curettage Hx of tonsillectomy Family History Family History Father Pancreatic cancer Hypertension Mother Hypertension Sibling Hypertension Grandparent Cerebrovascular accident Social History Social History Smoking status: Never smoker Second hand tobacco smoke exposure: No Alcohol intake: never Substance use: never Substance use type: does not use Do You Feel Safe in your Home?: Yes Lack of Transportation: No Lack of Food: Never True Current Housing: I Have Housing Concerned About Future Housing: No Difficulty Paying Gas/Electric Bills: No Difficulty Paying for Meds: No Currently Unemployed: No Education: High School Diploma/GED Difficulty w/ Childcare or Family Care: No Living arrangements: with family Gender identity (if verbalized by the patient): Female Spiritual care concerns: No Meds Home Medications and Allergies Home Medications ?Medication ?Instructions ?Recorded ?Confirmed ?Type cholecalciferol (vitamin D3) 125 5,000 unit PO DAILY 07/30/25 08/06/25 History mcg (5,000 unit) tablet (Vitamin D3) ferrous gluconate 270 mg (27 mg 270 mg PO DAILY 07/30/25 08/06/25 History iron) tablet (Fergon) magnesium L-threonate 48 mg 48 mg PO DAILY 07/30/25 08/06/25 History magnesium (667 mg) capsule magnesium chelate, malate (OptiMag) 100 mg PO DAILY 07/30/25 08/06/25 History Allergies Allergy/AdvReac Type Severity Reaction Status Date / Time No Known Allergies Allergy Verified 08/06/25 09:26 Exam Const: Orientation/consciousness: patient oriented x3 Other: Well-developed, well-nourished female in no acute distress. Neck: Thyroid: thyroid normal Lymphatic: no lymphadenopathy noted (in neck, axilla or inguinal nodes) Resp: Effort & Inspection: normal respiratory effort Auscultation: clear to auscultation bilaterally Cardio: Rate: regular rate Rhythm: regular rhythm Heart sounds: S1 normal heart sound present and S2 normal heart sound present GI: Other: ABD: Soft, nontender, nondistended. No guarding or rebound tenderness. No hepatosplenomegaly. : General: Yes no CVA tenderness Other: External genitalia: normal female hair distribution, without lesion. Urethral meatus: no lesion, non prolapsed. Bladder: no mass, nontender Vagina: well-estrogenized, without lesion or discharge. No cystocele or rectocele. Cervix: no lesion or discharge. Uterus: small, anteverted, freely mobile, nontender Adnexa: no mass or tenderness. Anus/perineum: no lesions, nontender Back/Spine/Pelvis: Back: no CVA tenderness Skin: General skin exam: normal color and no rashes or lesions noted Neuro: General: patient oriented x3 Extrem: Other: Extremities: nontender with no edema Psych: Mental Status: mental status grossly normal Affect: normal affect Assessment and Plan Assessment and plan (1) Menometrorrhagia: Code(s): N92.1 - Excessive and frequent menstruation with irregular cycle Status: Acute Assessment and Plan: A: Menometrorrhagia: P: I told her I thought hysteroscopy D&C would be appropriate. She understands risks of surgery to include risks of anesthesia, risks of pain, infection, bleeding, blood products, thromboembolic phenomena and damage to adjacent structures such as bowel, bladder, ureters, blood vessels and nerves. She understands all these risks and elects to proceed with surgery.
--- NOTE | 2025-08-12 12:18 | WPDANESEPPF ---
Anes - Initial Pre Proc Eval Procedure: Operation Date: 08/12/25 14:00 Proposed Procedures p Hysteroscopy Dilation and Curettage with Removal of any Endometrial Lesion, If Necessary, - Jose Armando Bear MD Date/Time: 08/12/25 12:18 Surgeon: Jose Armando Bear MD Pre Op Diagnosis: Menometrorrhagia, Endometrial polyp Patient Data Age: 50 Gender: F Height: 1.65 m Weight: 55.9 kg Allergies Allergy/AdvReac Type Severity Reaction Status Date / Time No Known Allergies Allergy Verified 08/06/25 09:26 Home Medications ?Medication ?Instructions ?Recorded ?Confirmed ?Type cholecalciferol (vitamin D3) 125 5,000 unit PO DAILY 07/30/25 08/06/25 History mcg (5,000 unit) tablet (Vitamin D3) ferrous gluconate 270 mg (27 mg 270 mg PO DAILY 07/30/25 08/06/25 History iron) tablet (Fergon) magnesium L-threonate 48 mg 48 mg PO DAILY 07/30/25 08/06/25 History magnesium (667 mg) capsule magnesium chelate, malate (OptiMag) 100 mg PO DAILY 07/30/25 08/06/25 History Patient hx anesthesia problems: none Family hx anesthesia problems: none Results Review: All pre-operative results and documents have been reviewed as part of the pre-operative evaluation. [facility] Past Medical History Medical History Headache Anemia Allergies Surgical History Surgical History Hx of LASIK H/O tubal ligation History of breast biopsy Previous section History of dilatation and curettage Hx of tonsillectomy Family History Family History Father Pancreatic cancer Hypertension Mother Hypertension Sibling Hypertension Grandparent Cerebrovascular accident Social History Social History Smoking status: Never smoker Second hand tobacco smoke exposure: No Alcohol intake: never Substance use: never Substance use type: does not use Do You Feel Safe in your Home?: Yes Lack of Transportation: No Lack of Food: Never True Current Housing: I Have Housing Concerned About Future Housing: No Difficulty Paying Gas/Electric Bills: No Difficulty Paying for Meds: No Currently Unemployed: No Education: High School Diploma/GED Difficulty w/ Childcare or Family Care: No Living arrangements: with family Gender identity (if verbalized by the patient): Female Spiritual care concerns: No Anes - Eval Final PreProcedure Day of Procedure 08/12/25 12:18 Patient weight: normal Heart: regular rate and rhythm Lungs: clear to auscultation Airway: Mallampati scale class II Neurological: alert and oriented Last oral intake: >/= 8 hours ASA classification: II Emergent: no Anesthetic plan: proceed Anesthesia type and monitoring: general GIVS and standard monitoring Results Review: All pre-operative results and documents have been reviewed as part of the pre-operative evaluation. Informed Consent: The patient's anesthetic plan and its attendant risks and benefits were discussed with the patient/family/POA. Questions were solicited and answers provided to the satisfaction of the patient/family/POA.
--- NOTE | 2025-08-12 12:54 | WPDHPUPDATE1 ---
History and Physical Update Update Date/Time: 08/12/25 12:54 History and Physical has been reviewed, including an updated exam of the patient. There are NO changes in the patient's condition. Risks, benefits, and alternatives have been discussed and questions answered. Patient agrees to proceed with procedure.
[2025-08-12] MEDS: ACETAMINOPHEN 500 MG TABLET 1000 MG PO (13:00)
[2025-08-12] MEDS: LACTATED RINGERS 1,000 ML 30 ML IV CONT (13:00)
[2025-08-12 13:57] VITALS: BP 131/71; PULSE 55; RESP 16; TEMP 37.5; O2SAT 97; BMI 21.2
[2025-08-12 14:02] LABS: BEDSIDEPREGUCG Negative (Negative)
[2025-08-12] MEDS: LIDOCAINE 1% LOCAL INJ 10 ML VIAL INFILTRATE (14:07)
--- NOTE | 2025-08-12 14:12 | S_PTH ---
PATIENT: Amrita Correia LOC: [facility] U#:[id number] AGE/SX: 50/F ROOM: RE08/12/[address]: Jose Armando Bear MD : 1975 BED: DIS: 08/12/2025 SPEC #: [id number] RECD: 08/13/25 08:35 STATUS: RIANNA REQ #: [id number] SUDHA: 08/12/25 14:[address]: Jose Armando Bear DEPT: [facility] Surgical RECD BY: Alvina Dennis MLT, ([facility]) ENTERED: 08/13/25 08:35 SP TYPE: Surgical OTHR DR: Naga Dalton MD Tissues: A - Uterine Contents Procedures: Hematoxylin and Eosin Stain Gross and Microscopic Level 4
--- NOTE | 2025-08-12 14:25 | W.PM.PROC2 ---
Procedure Note - Detailed Date of Procedure 08/12/25 Pre-op Diagnosis Menometrorrhagia Post-op Diagnosis Same Procedure Performed Hysteroscopy Dilation and sharp curettage Surgeon Jose Armando Bear MD Anesthesia MAC and Local (1% lidocaine) Findings Several endometrial polyps Description of Procedure The patient was taken to the operating room where she was prepared and draped in the usual sterile fashion in the dorsal lithotomy position. The bladder was drained with a red rubber catheter. A sterile speculum was placed into the vagina. The anterior lip of the cervix was grasped with single-tooth tenaculum. Ten mL of 1% lidocaine was administered in a paracervical block. The cervix was then gently dilated using Hegar dilators until a 7 mm dilator could be passed. Hysteroscopy was performed using sterile saline as a distention medium. Findings are as noted above. The Aveta hysteroscopic resector was advanced and the endometrial polyps were excised. Sharp curettage was then performed, and endometrial curettings were collected on a Telfa pad and passed off to be sent to pathology. Hemostasis was excellent. Sponge, lap, needle and instrument counts were correct. The patient was awakened and taken to the recovery room in stable condition. I was present and scrubbed through the entire procedure. Implants None Estimated Blood Loss 5 Drains No Packing No Pathology Yes (Endometrial curettings) Complications None Condition Stable Disposition PACU [facility] Billing Surgery - Charge Forward: Surgery Billing
[2025-08-12 14:26] VITALS: BP 103/67; PULSE 61; RESP 14; O2SAT 100
== END 2025-08-12 15:04 | disposition home or self-care (01) ==
PROVIDERS: PCP Family Medicine; Visit Provider Obstetrics & Gynecology
PROC: 0U5B8ZZ Destruction of Endometrium, Via Natural or Artificial Opening Endoscopic (ICD-10-PCS; CPT 58563; principal; 2025-08-12 14:00)
DX: N84.0 Polyp of corpus uteri (principal); Z98.890 Other specified postprocedural states; D64.9 Anemia, unspecified; Z98.51 Tubal ligation status; Z80.0 Family history of malignant neoplasm of digestive organs
CPT/HCPCS: 58558; 88305; A9270; J1885; J2003; J2250; J2704; J3010; J7120

== ENCOUNTER 2025-08-28 08:12 | Outpatient (CLI) | payer OTHER, SELFPAY ==
--- OUTSIDE RECORDS SUMMARY | 2003-08-31 19:00 | XMS_ITS | Continuity of Care Document ---
Author Organization [facility] Address [address] [place] [address] [address] [place] [address] Phone Care Team Providers Care Postal Superintendent Name Role Phone Eden OD, Som Unavailable Unavailable Advance Directives Directive Yes / No Effective Date File Name No Information Encounters Encounter Description Practice Location Reason(s) For Visit Diagnoses Date Provider Providers Copied on Encounter [facility], [address], [place], [place], [id number], [place] tel:[phone] [facility] [place] No Information Aug- 1-200 3 Eden OD Som. [address] [facility] [place] , [address], [place], [address], [place]. tel:[phone] Family History Family Member Type Diagnosis Age At Onset No Information Payers Payer name Insurance type Covered democrat ID Authoriza tion(s) No Information Social History [...]
--- OUTSIDE RECORDS SUMMARY | 2025-08-28 08:20 | XMS_ITS | Clinical Summary ---
Author Organization [facility] Address [address] [place] [address] Care Team Providers Care Roving Technician Name Role Phone Nik Trujillo MD Primary Care Provider [phone] Source Comments [facility],non-[facility] Affiliates and Associated Physician Practices is amultiple site organization consisting of ambulatory clinics and hospital sitesin [place], [place], [place] and [place]. This disclosure is being madepursuant to the Care Everywhere program and may not contain all information available regarding this patient. 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 Gender Identity Not on file Sexual [...] of 3 - 19+ 3-dose series) 01/15/1995 PAP SMEAR 01/15/1997 DEPRESSION SCREENING 11/12/2024 COVID-19 VACCINE (2023-2 5 season) 2025 INFLUENZA VACCINE (#1) 2025 [...] patient's age to complete [place] [address] [facility] SELF PAY NO INSURANCE Member Subscriber Plan / Payer (Ef fective for All Dates) Name:Gilbert Correia Hussein Member ID:Not on file Relation to Subscriber:Not on file Name:GILBERT CORREIA Hussein Subscriber ID:Not on file (Home) Address: [address] [place] [address] [place] [address] Payer ID:Not on file Group ID:Not on file Type:Self Pay Address: [place], [place] Care Teams Roving Technician Relationship Specialty Start Date End Date Nik Trujillo MD [address] [address] PCP - General 09/24/20
--- OUTSIDE RECORDS SUMMARY | 2025-08-28 08:20 | XMS_ITS | Encounter Summary ---
Author Organization [facility] Address [address] [place] [address] Care Team Providers Care Residential Sales Associate Name Role Phone Nik Trujillo MD Primary Care Provider [phone] Encounter Details Date Type Department Care Team (Late st Contact Info) Description 09/27/2020 Lab Requisition [facility] [address] [place] [address] Mauricio Norman MD [address] [facility] [place] [address] Social History Tobacco Use Types Packs/Day Years Used Date Smoking Tobacco: Never Assessed Comments Unknown Sex and Gender Information Value Date Recorded Sex Assigned at Not on file 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 Gender Identity Not on file Sexual Orientation Not on file documented as of this encounter Plan of Treatment Not on file documented as of this encounter Procedures Procedure Name Priority Date/Time Associated Diagnosis Comments DERMATOPATHOLOGY Routine 09/23/2020 12:0 0 AM MAGNETIC PROSPECTING OPERATOR documented in this encounter Results * DERMATOPATHOLOGY (09/23/2020 12:00 AM MAGNETIC PROSPECTING OPERATOR) Case Report Dermatopathology Report Case: [id number] Authorizing Provider: aMuricio Norman MD Collected: 09/23/2020 12:00 AM Ordering Location: [facility] Received: 09/27/2020 06:44 AM Pathologist: Alyssa Reid MD Specimen: Skin, left mid back 0 2:41 PM [facility] Final Diagnosis Specimen A. SKIN, left mid back: LENTIGINOUS MELANOCYTIC NEVUS, COMPOUND TYPE, IRRITATED (COMPOUND MELANOCYTIC NEVUS WITH ARCHITECTURAL DISORDER) (D22.5) 0 2:41 PM [facility] at 1441 MAGNETIC PROSPECTING OPERATOR Clinical History Nevus vs MM. Path#[id number] 0 2:41 PM [facility] Gross Description Specimen A: Received is one formalin filled container labeled with the patient's name and designated left mid back. The specimen consists of a shave biopsy measuring 4x3x1 mm. Jar 0. 0 2:41 PM [facility] Microscopic Description Specimen A. SKIN, [...] or Compound Dysplastic Nevus) 0 2:41 PM [facility] Disclaimer An external and internal positive and negative controls are appropriate for the histochemical, immunohistochemical and immunofluorescence stain(s) in this case (if any), except where stated explicitly. The performance characteristics of the stain(s) cited in this report were developed and its performance characteristic determined by the Dermatopathology Laboratory at [facility], directed by Dr. Audrey Reid. These tests need not be, and therefore are not, approved by the [place] Food and Drug Administration. The tests are used for clinical purposes. Billing Codes Specimen Charges Stain Charges 31204 1 0 2:41 PM [facility] Embedded Images 0 2:41 PM [facility] Pathology/Cytolog y TISSUE SPECIMEN FROM SKIN / Unknown 09/23/2020 09/27/2020 6:44 AM [facility] us Mauricio Norman MD LAB - PATHOLOGY/CYTOLOGY ORDER SAMI Final Result DERMATOPATHOLOGY LABORATORY [facility] - Department of Dermatology [facility] Medicine [facility] [phone] documented in this encounter Visit Diagnoses Not on filedocumented in this encounter Care Teams Residential Sales Associate Relationship Specialty Start Date End Date Nik Trujillo MD [address] [address] PCP - General 09/24/20 documented as of this encounter
--- OUTSIDE RECORDS SUMMARY | 2025-08-28 08:20 | XMS_ITS | Data Portability ---
Author Organization [place] [facility] [employer], Main Office Address [address] [place] [address] Assessment No assessment recorded. Plan of Treatment [...] range: negative alan/ l) Trace Not Available [address] , [address], [place], [address], 01/20/2021 09:51:39 01/21/20 21 01/20/2021 urina lysis , dipst ick Nitrite (reference rage: negative mg/dl) negati ve Not Available [address], [place], [address], 01/20/2021 09:51:39 01/21/20 21 01/20/2021 urina lysis , dipst ick Urobilinogen (reference range: 0.2-1 mg/dl) 0.2 Not Available [address], [place], [address], 01/20/2021 09:51:39 03/11/01/20/2021 urina lysis , dipst ick Protein (reference range: negative mg/dl) Negati ve Not Available [address] , [address], [place], [address], 01/20/2021 09:51:39 01/21/20 21 01/20/2021 urina lysis , dipst ick pH (reference range: 5-7) 6.0 Not Available [address] , [address], [place], [address], 01/20/2021 09:51:39 01/21/20 21 01/20/2021 urina lysis , dipst ick Blood (reference range: negative Alfredito/ l) Small Not Available [address] , [address], [place], [address], 01/20/2021 09:51:39 01/21/20 21 01/20/2021 urina lysis , dipst ick Specific Buckley (reference range: 1.005-1.030) 1.020 Not Available [address] , [address], [place], [address], 01/20/2021 09:51:39 01/21/20 21 01/20/2021 urina lysis , dipst ick Ketone (reference range: negative mg/dl) Negati ve Not Available [address] , [address], [place], [address], 01/20/2021 09:51:39 01/21/20 21 01/20/2021 urina lysis , dipst ick Bilirubin (reference range: negative mg/dl) Negati ve Not Available [address] , [address], [place], [address], 01/20/2021 09:51:39 01/21/20 21 01/20/2021 urina lysis , dipst ick Glucose (reference range: negative mg/dl) Negati ve Not Available [address] , [address], [place], [address], 01/20/2021 09:51:39 01/21/20 21 01/20/2021 urina lysis , dipst ick Appearance Clear Not Available [address] , [address], [place], [address], 01/20/2021 09:51:39 01/21/20 21 01/20/2021 urina lysis , dipst ick Color Yellow Not Available [address] , [address], [place], [address], 01/20/2021 09:51:39 02/03/20 21 02/03/2021 lipid panel , serum cholesterol, total 148 mg/dL 100-19 9 Not Available [facility] ([facility]) [address] [place], [address], 02/03/2021 04:07:57 02/03/20 21 02/03/2021 lipid panel , serum triglyceride s 54 mg/dL 0-149 Not Available [facility] ([facility]) [address] [facility], [place], [address], 02/03/2021 04:07:57 02/03/20 21 02/03/2021 lipid panel , serum HDL cholesterol 77 mg/dL >39 Not Available [facility] ([facility]) [address] [place], [address], 02/03/2021 04:07:57 02/03/20 21 02/03/2021 lipid panel , serum VLDL cholesterol sarah 12 mg/dL 5-40 Not Available [facility] ([facility]) [address] [place], [address], 02/03/2021 04:07:57 02/03/20 21 02/03/2021 lipid panel , serum LDL chol calc ([facility]) 59 mg/dL 0-99 Not Available [facility] ([facility]) [address] [place], [address], 02/03/2021 04:07:57 02/03/20 21 02/03/2021 lipid panel , serum comment: composite technician Not Available [facility] ([facility]) [address] [place], [address], 02/03/2021 04:07:57 02/03/20 21 02/03/2021 CMP, serum or plasm a glucose 86 mg/dL 65-99 Not Available [facility] ([facility]) [address] [place], [address], 02/03/2021 04:07:56 02/03/20 21 02/03/2021 CMP, serum or plasm a BUN 11 mg/dL 6-24 Not Available [facility] ([facility]) [address] [place], [address], 02/03/2021 04:07:56 02/03/20 21 02/03/2021 CMP, serum or plasm a creatinine 0.92 mg/dL 0.57-1 .00 Not Available [facility] ([facility]) [address] [place], [address], 02/03/2021 04:07:56 02/03/20 21 02/03/2021 CMP, serum or plasm a eGFR if nonafricn AM 75 mL/mi n/1.7 3 >59 Not Available [facility] ([facility]) [address] [place], [address], 02/03/2021 04:07:56 02/03/20 21 02/03/2021 CMP, serum or plasm a eGFR if africn AM 87 mL/mi n/1.7 3 >59 Not Available [facility] ([facility]) [address] [place], [address], 02/03/2021 04:07:56 02/03/20 21 02/03/2021 CMP, serum or plasm a BUN/creatini ne ratio 12 9-23 Not Available [facility] ([facility]) [address] [place], [address], 02/03/2021 04:07:56 02/03/20 21 02/03/2021 CMP, serum or plasm a sodium 138 mmol/ L 134-14 4 Not Available [facility] ([facility]) [address] [place], [address], 02/03/2021 04:07:56 02/03/20 21 02/03/2021 CMP, serum or plasm a potassium 4.8 mmol/ L 3.5-5. 2 Not Available [facility] ([facility]) [address] [place], [address], 02/03/2021 04:07:56 02/03/20 21 02/03/2021 CMP, serum or plasm a chloride 104 mmol/ L 96-106 Not Available [facility] ([facility]) [address] [place], [address], 02/03/2021 04:07:56 02/03/20 21 02/03/2021 CMP, serum or plasm a carbon dioxide, total 24 mmol/ L 20-29 Not Available [facility] ([facility]) [address] [place], [address], 02/03/2021 04:07:56 02/03/20 21 02/03/2021 CMP, serum or plasm a calcium 9.3 mg/dL 8.7-10 .2 Not Available [facility] ([facility]) [address] [place], [address], 02/03/2021 04:07:56 02/03/20 21 02/03/2021 CMP, serum or plasm a protein, total 6.8 g/dL 6.0-8. 5 Not Available [facility] ([facility]) [address] [facility] [place], [address], 02/03/2021 04:07:56 02/03/20 21 02/03/2021 CMP, serum or plasm a albumin 4.4 g/dL 3.8-4. 8 Not Available [facility] ([facility]) [address] [place], [address], 02/03/2021 04:07:56 02/03/2002/03/2021 CMP, serum or plasm a globulin, total 2.4 g/dL 1.5-4. 5 Not Available [facility] ([facility]) [address] [place], [address], 02/03/2021 04:07:56 02/03/2002/03/2021 CMP, serum or plasm a A/G ratio 1.8 1.2-2. 2 Not Available [facility] ([facility]) [address] [place], [address], 02/03/2021 04:07:56 02/03/2002/03/2021 CMP, serum or plasm a bilirubin, total 1.3 mg/dL 0.0-1. 2 above high normal Not Available [facility] ([facility]) [address] [place], [address], 02/03/2021 04:07:56 02/03/20 21 02/03/2021 CMP, serum or plasm a alkaline phosphatase 48 IU/L 39-117 Not Available [facility] ([facility]) [address] [place], [address], 02/03/2021 04:07:56 02/03/20 21 02/03/2021 CMP, serum or plasm a AST (SGOT) 23 IU/L 0-40 Not Available [facility] ([facility]) [address] [facility], [place], [address], 02/03/2021 04:07:56 02/03/20 21 02/03/2021 CMP, serum or plasm a ALT (SGPT) 13 IU/L 0-32 Not Available [facility] ([facility]) [address] [facility], [place], [address], 02/03/2021 04:07:56 11/07/20 23 11/06/2023 MAMMO , diagn ostic , digit al, bilat eral No observ ation record ed. [address], [address], 11/21/2023 16:51:12 11/09/20 23 04/13/2020 medic al recor d reque st* No observ ation record ed. [address] [address], [place], [address], 11/21/2023 14:44:44 11/29/19 24 11/06/2023 mammo gram, follo w up* No observ ation record ed. [address] [address], [place], [address], 11/30/2023 13:36:47 Result Notes None recorded. Problems Name Problem SNOMED Code Status Onset Date Resolution Date Notes Provider Name and Address Organization Details Recorded Time Migraine 31138377 Active 2018 Not Available [employer] 3 20:40:05 Pain of left breast 4571728008 Active 2022 Vamsi Waller MD [address], [place], [address] , [facility] [employer] 3 11:01:52 Mammograph y abnormal 931365968 Active 2022 Frank Arthur RN null, [facility] [employer] [facility] 3 11:14:38 Mastodynia of bilateral breasts 3718319145033 9109 Active 2022 RENAE Noguera, [facility] [employer] [facility] 3 11:09:01 Problem Notes None recorded. Procedures Surgical History Date Name Laterality Status Provider Name and Address Organization Details Recorded Time 11/30/19 24 Breast Biopsy completed Frank Arthur RN [place] [facility] [facility] 12/06/2023 16:25:31 delivery completed Not Available [facility] 01/10/2023 20:39:23 Tonsillectomy completed Not Available [facility] 01/10/2023 20:39:23 Imaging Results None recorded. Procedure [...] % 98 % 76 /min 97.2 [degF] 13481.0 8 g 100/60 mm[Hg] Not Available [facility] 3 20:39:28 Date Recorded Body height Body mass index (BMI) Body weight Body temperature Oxygen saturation Oxygen saturation in Arterial blood by Pulse oximetry Heart rate Systolic And Diastolic Provider Name and Address Organization Details Last Updated DateTime 3 165.1 cm 19.5 kg/m2 81420.3 1 g 98.1 [degF] 98 % 98 % 97 /min 118/62 mm[Hg] Rachel Nino CMA [place] [facility] 3 10:38:40 Date Recorded Body mass index (BMI) Body height Oxygen saturation Oxygen saturation in Arterial blood by Pulse oximetry Heart rate Body temperature Body weight Systolic And Diastolic Provider Name and Address Organization Details Last Updated DateTime 2 19.6 kg/m2 165.1 cm 99 % 99 % 71 /min 97.9 [degF] 63789.9 g 112/62 mm[Hg] Not Available [facility] 3 20:39:28 Date Recorded Body mass index (BMI) Body height Oxygen saturation Oxygen saturation in Arterial blood by Pulse oximetry Heart rate Body temperature Body weight Systolic And Diastolic Provider Name and Address Organization Details Last Updated DateTime 2 19.8 kg/m2 165.1 cm 99 % 99 % 79 /min 97.7 [degF] 25107.4 9 g 124/64 mm[Hg] Not Available [facility] 3 20:39:28 Social History Question Answer Notes LastModified by [employer] Details LastModified Time Tobacco Smoking Status Never Smoker Not Available [facility] 01/10/2023 20:39:09 What Is Your Level Of Caffeine Consumption? Occasional [id number] Information not available 01/10/2023 What Type Of Diet Are You Following? REGULAR [id number] Information not available 01/10/2023 Sex: Unknown Functional Status Question Answer Note LastModified by [employer] Details LastModified Time Do you use any illicit or recreational drugs? No [id number] Information not available 01/10/2023 What is your level of alcohol consumption? None [id number] Information not available 01/10/2023 What is your exercise level? Occasional [id number] Information not available 01/10/2023 Mental Status None recorded. Family History Relationship Description Onset Age of this Age Resolved Age Notes LastModified by Organization Details LastModified Time Father Hypertensive disorder [id number] Not available 01/10/2023 20:39:23 Father Hyperlipidem ia [id number] Not available 01/10/2023 20:39:24 Mother Hypertensive disorder [id number] Not available 01/10/2023 20:39:24 Medical History No medical history recorded. Gynecological HistoryNo gynecological history recorded. Obstetrics History GPAL:G 0 P 0 0 0 0 Past Encounters Encounter ID Performer Location Encounter Start Date Encounter Closed Date Diagnosis/Indication Diagnosis SNOMED-CT Code Diagnosis ICD10 Code Diagnosis IMO Codes Diagnosis Note [id number] Vamsi Waller MD [facility] Meghan payne [facility] [place] [address] 01/20/2021 00:00:00 01/20/2021 14:12:14 [id number] Vamsi Waller MD [facility] [address] [place] [address] 03/09/2022 00:00:00 03/09/2022 09:57:47 [id number] Vamsi Waller MD [facility] Meg[address] payne [facility] [place] [address] 07/13/2022 00:00:00 07/13/2022 22:06:53 [id number] Vamsi Waller MD [facility] Meghan payne [facility] [place] [address] 02/09/2023 10:31:54 02/09/2023 12:09:41 Pain of left breast 2182723570 N64.4 At next mammogram pt will need [...] Dahl Member ID Guarantor Name 02/06/2023 1 [facility] [id number] Chapo Correia [id number] Amrita Correia Notes Date Note Type Note Provider Name and Address Organization Details Recorded Time 02/09/2023 text/html Here today c/o soreness of breast it is on the left side. Last mammogram was in 09/02. Has had it checked several times. When close to period will get more pain. No skin color change or nipple d/c. Gets mammogram at [facility]. Not due until 09/03 Vamsi Waller MD [address] [facility] [address], [place], [address], [place] [facility] [email or web address] 02/09/2023 16:05:58 OBGyn Episode No OBEpisode recorded.
--- OUTSIDE RECORDS SUMMARY | 2025-08-28 08:20 | XMS_ITS | Clinical Summary ---
Author Organization [facility] Address [address] [place] [address] Care Team Providers Care Electronic Prepress Operator Name Role Phone Zachary Bennett MD Primary Care Provider [phone] Allergies No known active allergies Medications ofloxacin [...] 2016 COVID-19 Vaccine (2023-2 5 season) 2025 Influenza Adult (#1) 2025 Meningococcal B Vaccine Aged Out No [...] patient's age to complete this topic Insurance Care Teams Electronic Prepress Operator Relationship Specialty Start Date End Date Zachary Bennett MD [address] [place] [id number] PCP - General OBGYN 02/01/21
--- OUTSIDE RECORDS SUMMARY | 2025-08-28 08:21 | XMS_ITS | Clinical Summary ---
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
--- OUTSIDE RECORDS SUMMARY | 2025-08-28 08:21 | XMS_ITS | Patient Health Record ---
Author Organization [facility] Address [address] [place], [place] [address] Care Team Providers Care Lens Assistant Name Role Phone ISABELLA Patel Unavailable [phone] Reason For Referral No Information Medications Medication SIG (Take, Route, Frequency, Duration) Notes Start Date End Date Status Nabumetone 500 MG Oral Tablet ORAL nabumetone 500 MG Oral TabletOriginal Medicationnabumetone 500 MG Oral Tablet *Reorder from [employer] for eRx and Interaction Alerts* 09/19/2012 Active Plan Of Treatment No Information Insurance Providers Payer Name Payer Address Payer Phone Subscriber Number Group Number Insured Name Patient Relationship to Insured Coverage Start Date Coverage End Date [facility] [address] [address] [place] [id number] GILBERT ZHANG Self - patient is the insured
[2025-08-28 09:27] LABS: Hematocrit 31.6 % (37.0-47.0); Hemoglobin 9.2 g/dL (12.0-15.0); Immature Granulocyte Percent A 0.3 % (0-0.5); Lymphocytes Absolute Auto 1.16 K/mm3 (0.9-3.2); Mean Corpuscular HGB Conc 29.1 g/dl (32-36); Mean Corpuscular Hemoglobin 25.3 pg (26-34); Mean Corpuscular Volume 87.1 fl (80-100); Nucleated Red Blood Cells Absolute Auto 0.000 K/mm3 (0.0-0.012); Nucleated Red Blood Cells Perc 0.0 % (0.0-0.2); Platelet Count Result 220 k/mm3 (150-375); Red Blood Count 3.63 M/mm3 (4.2-5.4); White Blood Count 3.2 K/mm3 (4.5-10.0)
[2025-08-28 09:48] LABS: Acanthocytes 1+; Anisocytosis 2+; Hypochromasia 1+; Polychromasia 1+
[2025-08-28 09:49] LABS: Schistocytes None Seen
[2025-08-28 10:22] LABS: Ferritin 12.90 ng/mL (6.24-137)
== END 2025-08-28 08:13 | disposition home or self-care (01) ==
LOC: ANHLAB 08:14
PROVIDERS: PCP Family Medicine; Visit Provider Obstetrics & Gynecology
DX: D64.9 Anemia, unspecified (principal)
CPT/HCPCS: 36415; 82728; 85025

== ENCOUNTER 2025-10-09 08:51 | Emergency (ER) | payer OTHER, SELFPAY ==
--- NOTE | ~2025-10-09 | US_ITS ---
EXAMINATION: US pelvic complete INDICATION: Heavy vaginal bleeding Comparison:No prior studies for comparison. TECHNIQUE: Multiple transabdominal and endovaginal sonographic images of the pelvis performed. FINDINGS: The uterus measures 10 x 5 x 5.2 cm. The endometrial complex measures 17 mm. Endometrium is thickened and heterogeneous with possible hypoechoic mass measuring 1.3 cm. There is uterine fibroid anteriorly measuring 1.7 x 0.9 x 1.2 cm. The right ovary measures 3.8 x 1.8 x 3.6 cm and the left ovary measures 2.7 x 1.4 x 2.3 cm. There are small follicles in each ovary. Normal doppler signal in both ovaries. There is no free fluid in the pelvis. There are no abnormal masses seen on either side. IMPRESSION: 1. Thickened heterogeneous endometrium measuring 1.7 cm. 2: Uterine fibroid anteriorly measuring 1.7 cm. Reviewed, dictated and finalized at location I. [facility]
--- OUTSIDE RECORDS SUMMARY | 2025-10-09 08:54 | XMS_ITS | Clinical Summary ---
Author Organization [facility] Address [address] [place] [address] Care Team Providers Care Social Welfare Clerk Name Role Phone Zachary Bennett MD Primary Care Provider [phone] Allergies No known active allergies Medications ofloxacin [...] HPV 01/15/2006 Mammogram Screening 2016 COVID-19 Vaccine (2024-2 6 season) 2025 Influenza Adult (#1) 2025 Hepatitis A Vaccines Aged Out No long er eligible based on patient's age to complete this topic Meningococcal B Vaccine Aged Out No l [...] to complete this topic Insurance Care Teams Social Welfare Clerk Relationship Specialty Start Date End Date Zachary Bennett MD [facility] [place] [address] PCP - General OBGYN 02/01/21
--- OUTSIDE RECORDS SUMMARY | 2025-10-09 08:54 | XMS_ITS | Clinical Summary ---
Author Organization [facility] Address [address] [place] [address] Care Team Providers Care Safe And Vault Mechanic Name Role Phone Nik Trujillo MD Primary Care Provider [phone] Source Comments [facility],non-owned Affiliates and Associated Physician Practices is amultiple site organization consisting of ambulatory clinics and hospital sitesin [place], [place], [place] and [place]. This disclosure is being madepursuant to the Care Everywhere program and may not contain all information available regarding this patient. 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 Gender Identity Not on file Sexual Orientation [...] 19+ 3-dose series) 01/15/1995 Cervical Cancer Screening 01/15/1997 PAP SMEAR 01/15/1997 PAP with HPV 01/15/2006 DEPRESSION SCREENING 11/12/2024 COVID-19 VACCINE (1 - 2024-2 6 season) 2025 INFLUENZA VACCINE (#1) 2025 ZOSTER [...] patient's age to complete [place] [address] SELF PAY NO INSURANCE Member Subscriber Plan / Payer (Ef fective for All Dates) Name:Gilbert Correia Member ID:Not on file Relation to Subscriber:Not on file Name:GILBERT CORREIA Subscriber ID:Not on file (Home) Address: [facility] [place] [address] Payer ID:Not on file Group ID:Not on file Type:Self Pay Address: [facility] [place] [address] Care Teams Safe And Vault Mechanic Relationship Specialty Start Date End Date Nik Trujillo MD [address] [address] PCP - General 09/24/20
--- OUTSIDE RECORDS SUMMARY | 2025-10-09 08:54 | XMS_ITS | Patient Health Record ---
Author Organization [facility] Address [address] [place], [place] [id number] Care Team Providers Care Washroom Attendant Name Role Phone ISABELLA Patel Unavailable [phone] Reason For Referral No Information Medications Medication SIG (Take, Route, Frequency, Duration) Notes Start Date End Date Status Nabumetone 500 MG Oral Tablet ORAL nabumetone 500 MG Oral TabletOriginal Medicationnabumetone 500 MG Oral Tablet *Reorder from [employer] for eRx and Interaction Alerts* 09/19/2012 Active Social History Social History Additional Details Category Social Info Options Details Migrated Social History Migrated Social History Smoking Status : Never smoked , Alcohol intake : , History of tobacco use : Plan Of Treatment No Information Insurance Providers Payer Name Payer Address Payer Phone Subscriber Number Group Number Insured Name Patient Relationship to Insured Coverage Start Date Coverage End Date [facility] [address] [address] [place] [id number] GILBERT ZHANG Self - patient is the insured
--- OUTSIDE RECORDS SUMMARY | 2025-10-09 08:54 | XMS_ITS | Encounter Summary ---
Author Organization [facility] Address [address] [facility] [place] [address] Care Team Providers Care Antitank Assault Gunner Name Role Phone Nik Trujillo MD Primary Care Provider [phone] Encounter Details Date Type Department Care Team (Late st Contact Info) Description 09/27/2020 Lab Requisition [facility] [address] [facility] [place] [address] Mauricio Norman MD [address] [facility] [place] [address] Social History Tobacco Use Types Packs/Day Years Used Date Smoking Tobacco: Never Assessed Comments Unknown Sex and Gender Information Value Date Recorded Sex Assigned at Not on file 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 Gender Identity Not on file Sexual Orientation Not on file documented as of this encounter Plan of Treatment Not on file documented as of this encounter Procedures Procedure Name Priority Date/Time Associated Diagnosis Comments DERMATOPATHOLOGY Routine 09/23/2020 12:0 0 AM ASSISTANT FITNESS MANAGER documented in this encounter Results * DERMATOPATHOLOGY (09/23/2020 12:00 AM ASSISTANT FITNESS MANAGER) Case Report Dermatopathology Report Case: [id number] Authorizing Provider: Mauricio Norman MD Collected: 09/23/2020 12:00 AM Ordering Location: [facility] Received: 09/27/2020 06:44 AM Pathologist: Alyssa Reid MD Specimen: Skin, left mid back 0 2:41 PM [facility] DERMAT[facility] Final Diagnosis Specimen A. SKIN, left mid back: LENTIGINOUS MELANOCYTIC NEVUS, COMPOUND TYPE, IRRITATED (COMPOUND MELANOCYTIC NEVUS WITH ARCHITECTURAL DISORDER) (D22.5) 0 2:41 PM [facility] DERMATOPATHOLOGY [facility]ORATORY at [address] [facility] Clinical History Nevus vs MM. Path#[id number] 0 2:41 PM [facility]ERMATOPATH[facility] Gross Description Specimen A: Received is one formalin filled container labeled with the patient's name and designated left mid back. The specimen consists of a shave biopsy measuring 4x3x1 mm. Jar 0. 0 2:41 PM [facility] DERMATOPATHOLOGY [facility]OR[facility]ORY Microscopic Description Specimen A. [...] or Compound Dysplastic Nevus) 0 2:41 PM [facility] DERMATOPATHOLOGY [facility]OR[facility]ORY Disclaimer An external and internal positive and negative controls are appropriate for the histochemical, immunohistochemical and immunofluorescence stain(s) in this case (if any), except where stated explicitly. The performance characteristics of the stain(s) cited in this report were developed and its performance characteristic determined by the Dermatopathology Laboratory at [facility], directed by Dr. Audrey Reid. These tests need not be, and therefore are not, approved by the [place] Food and Drug Administration. The tests are used for clinical purposes. Billing Codes Specimen Charges Stain Charges 58845 1 0 2:41 PM [facility] DERMATOPATHOLOGY [facility]OR[facility]ORY Embedded Images 0 2:41 PM [facility] DERMATOPATH[facility]Y [facility] Pathology/Cytolog y TISSUE SPECIMEN FROM SKIN / Unknown 09/23/2020 09/27/2020 6:44 AM ASSISTANT FITNESS MANAGER us Mauricio Norman MD LAB - PATHOLOGY/CYTOLOGY ORDER SAMI Final Result DERMATOPATHOLOGY LABORATORY [facility] - Department of Dermatology [place] [id number] [facility], [address] [phone] documented in this encounter Visit Diagnoses Not on filedocumented in this encounter Care Teams Antitank Assault Gunner Relationship Specialty Start Date End Date Nik Trujillo MD [address] [address] PCP - General 09/24/20 documented as of this encounter
--- OUTSIDE RECORDS SUMMARY | 2025-10-09 08:55 | XMS_ITS | Clinical Summary ---
Author Organization [facility] Address [address] [place] [address] Phone Care Team Providers Care Nurse Consultant Name Role Phone Unavailable Primary Care Provider Unavailabl e Social History Tobacco Use Types Packs/Day Years Used Date Smoking Tobacco: Never Assessed Comments Unknown Sex and Gender Information Value Date Recorded Sex Assigned at Not on file Legal Sex Female 9:27 AM [employer] Gender Identity Not on file Sexual Orientation [...] OR WO CAD Routine 11/06/2023 10:18 AM [employer] from Last 3 Months or Most Recently Relevant to Health Maintenance Results * MAMMO 3D [facility] LT W OR WO CAD (11/06/2023 10:18 AM [employer]) Anatomical Region Laterality Modality Breast Left Mammography Mikey SEXTON MAMMO ORDERABLES Edited Result - Final from Last 3 Months or Most Recently Relevant to Health Maintenance
[2025-10-09 08:59] VITALS: BP 128/74; PULSE 75; RESP 14; TEMP 36.4; O2SAT 100
--- NOTE | 2025-10-09 09:34 | ED.FEMALEGU ---
HPI - Female Genitourinary General Chief complaint: Vaginal Bleeding Stated complaint: heavy vaginal bleeding 2 weeks Time Seen by Provider: 10/09/25 08:56 History of Present Illness HPI Narrative: Patient is a 50-year-old female presents to the ER with heavy vaginal bleeding. She reports she has a history of vaginal bleeding and had a hysteroscopy in August. Patient reports she did not have a menstrual period until approximately 2 weeks ago but has since been experiencing heavy bleeding again with quarter-sized clots. She endorses a history anemia and reports her hemoglobin got as low as 7.4. Patient denies any abdominal cramping, recent fevers, urinary symptoms. She does endorse intermittent shortness of breath, chest heaviness, and intermittent dizziness. Related Data Home Medications ?Medication ?Instructions ?Recorded ?Confirmed ?Last Taken ?Type cholecalciferol (vitamin D3) 125 5,000 unit PO DAILY 07/30/25 08/27/25 Unknown History mcg (5,000 unit) tablet (Vitamin D3) magnesium L-threonate 48 mg 48 mg PO DAILY 07/30/25 08/27/25 Unknown History magnesium (667 mg) capsule magnesium chelate, malate (OptiMag) 100 mg PO DAILY 07/30/25 08/27/25 Unknown History iron BYMOUTH 09/23/25 Unknown History Allergies Allergy/AdvReac Type Severity Reaction Status Date / Time No Known Allergies Allergy Verified 10/09/25 09:03 Review of Systems Review of Systems: All systems reviewed & are unremarkable except as noted in HPI and below PMFSH Past Medical History Medical History Headache Anemia Allergies Surgical History Surgical History History of hysteroscopy Hx of LASIK H/O tubal ligation History of breast biopsy Previous section History of dilatation and curettage Hx of tonsillectomy Family History Family History Father Pancreatic cancer Hypertension Mother Hypertension Sibling Hypertension Grandparent Cerebrovascular accident Social History Social History Smoking status: Never smoker Second hand tobacco smoke exposure: No Alcohol intake: never Substance use: never Substance use type: does not use Lack of Transportation: No Lack of Food: Never True Current Housing: I Have Housing Concerned About Future Housing: No Difficulty Paying Gas/Electric Bills: No Difficulty Paying for Meds: No Currently Unemployed: No Education: High School Diploma/GED Difficulty w/ Childcare or Family Care: No Living arrangements: with family Gender identity (if verbalized by the patient): Female Spiritual care concerns: No Exam Narrative: GENERAL: Well appearing, well-nourished, non-toxic, in no acute distress. HEAD: Normocephalic, atraumatic. NECK: Supple. No adenopathy, no masses. RESPIRATORY: Airway patent, respirations nonlabored. Clear to auscultation bilaterally, no rales, rhonchi, wheezing. CARDIOVASCULAR: Regular rate and rhythm without murmurs, rubs, or gallops. Peripheral pulses 2+ and equal bilaterally. ABDOMINAL: Soft, nontender, nondistended, no hepatosplenomegaly. Normoactive BS. MUSCULOSKELETAL: Moves all extremities. Strength/ROM intact without gross deformities. SKIN: Warm, dry, normal color. No rashes. NEURO: A&O X3. Speech clear. Cranial nerves II-XII intact. No ataxic movements. PSYCHIATRIC: Appropriate mood and affect. Normal interaction. Course Vital Signs Vital signs: Vital Signs Temperature 36.4 C 10/09/25 08:59 Pulse Rate 75 10/09/25 08:59 Respiratory Rate 14 10/09/25 08:59 Blood Pressure 128/74 10/09/25 08:59 Pulse Oximetry 100 10/09/25 08:59 Oxygen Delivery Room Air 10/09/25 08:59 Temperature 36.4 C 10/09/25 08:59 Pulse Rate 63 10/09/25 12:43 Respiratory Rate 16 10/09/25 12:43 Blood Pressure 128/74 10/09/25 12:43 Pulse Oximetry 100 10/09/25 12:43 Oxygen Delivery Room Air 10/09/25 08:59 MDM - Female Genitourinary MDM Narrative Medical decision making narrative: Patient is a 50-year-old female presents to the ER with heavy vaginal bleeding. She reports she has a history of vaginal bleeding and had a hysteroscopy in August. Patient reports she did not have a menstrual period until approximately 2 weeks ago but has since been experiencing heavy bleeding again with quarter-sized clots. She endorses a history anemia and reports her hemoglobin got as low as 7.4. Patient denies any abdominal cramping, recent fevers, urinary symptoms. She does endorse intermittent shortness of breath, chest heaviness, and intermittent dizziness. Labs Ordered: CBC, CMP, PTT, INR, UA Imaging Ordered: Pelvic ultrasound Medications Ordered: 1 L normal saline IV bolus Results: Pt's US indicates 1. Thickened heterogeneous endometrium measuring 1.7 cm. 2: Uterine fibroid anteriorly measuring 1.7 cm. Diagnosis: uterine fibroid, abnormal vaginal bleeding Consults: 1330- OBGYN, Dr Bear, who advises patient make a follow-up appointment with him in the next week or 2. He also requests patient be discharged home with a prescription for Lysteda (650mg x 2) TID for 5 days. Patient Education/Shared MDM: Results of lab work and imaging shared with patient. Patient strongly advised to maintain hydration status upon discharge and follow-up with her OBGYN in the next week or two, per Dr Bear. She will be discharged home with a prescription for Lysteda (called into [facility] in [place]). Strict return precautions provided. Patient verbalized understanding and is in agreement with plan. Vital signs stable at time of discharge. All questions answered. Differential Diagnosis Differential diagnosis: Likely urinary tract infection, ovarian cyst, cystitis, dysmenorrhea and other (Abnormal vaginal bleeding, uterine fibroid) Lab Data Attestation: I reviewed the patient's lab results. 10/09/25 10:07 10/09/25 10:07 Labs: Lab Results 10/09/25 10/09/25 10/09/25 Range/Units 10:07 11: 11:27 WBC 3.5 L (4.5-10.0) K/mm3 RBC 3.15 L (4.2-5.4) M/mm3 Hgb 8.8 L (12.0-15.0) g/dL Hct 28.4 L (37.0-47.0) % MCV 90.2 (80-100) fl MCH 27.9 (26-34) pg MCHC 31.0 L (32-36) g/dl RDW 21.4 H (11.5-14.5) % Plt Count 205 (150-375) k/mm3 MPV 10.9 H (7.4-10.4) fl Immature Gran % (Auto) 0.6 H (0-0.5) % Neut % (Auto) 59.2 (45.5-73.1) % Lymph % (Auto) 28.8 (18.3-44.2) % [place] % (Auto) 9.4 H (2.6-8.5) % Eos % (Auto) 1.1 (0-4.4) % Baso % (Auto) 0.9 (0.2-1.2) % Lymph # (Auto) 1.01 (0.9-3.2) K/mm3 [place] # (Auto) 0.3 (0.1-0.6) K/mm3 Eos # (Auto) 0.0 (0-0.3) K/mm3 Baso # (Auto) 0.0 (0.0-0.1) K/mm3 Abs Immat Gran (auto) 0.02 (0.00-0.031) K/mm3 Absolute Neuts (auto) 2.1 (1.3-6.7) K/mm3 Absolute Nucleated RBC 0.000 (0.0-0.012) K/mm3 Nucleated RBC % 0.0 (0.0-0.2) % PT 13.2 (11.1-14.7) Seconds INR 1.0 APTT 29.6 (22.3-36.8) Seconds Sodium 138 (137-145) mmol/L Potassium 4.0 (3.4-5.0) mmol/L Chloride 108 H (98-107) mmol/L Carbon Dioxide 26 (22-30) mmol/L Anion Gap 4 (4-12) mmol/L BUN 11 (7-17) mg/dL Creatinine 1.10 H (0.7-1.0) mg/dL Estim Creat Clear Calc 49 ml/min Estimated GFR 53 L (59 - ) Glucose 88 (65-110) mg/dL Calcium 9.1 (8.4-10.2) mg/dL Total Bilirubin 0.5 (0.2-1.3) mg/dL AST 33 (14-36) U/L ALT 18 (6-35) U/L Alkaline Phosphatase 49 (38-126) U/L Total Protein 6.5 (6.3-8.2) g/dL Albumin 3.9 (3.5-5.1) g/dL Urine Color Red H (Yellow) Urine Appearance Turbid H (Clear) Urine pH TNP Ur Specific [place] TNP Urine Protein TNP Urine Glucose (UA) TNP Urine Ketones TNP Ur Blood (Man) TNP Urine Nitrate TNP Urine Bilirubin TNP Urine Urobilinogen TNP Leukocyte Esterase Rfl TNP Urine RBC 51-100 H (0-2) /hpf Urine WBC 0-3 (0-3) /hpf Ur Squamous Epith Cells Rare (Few) /hpf Urine Bacteria 2+ H (None) /hpf POC Urine HCG, Qual Negative (Negative) Imaging Data Attestation: I personally reviewed and interpreted this imaging study as follows: Radiologist's impression: Impressions Pelvis Ultrasound 10/09/25 12:14 IMPRESSION: 1. Thickened heterogeneous endometrium measuring 1.7 cm. 2: Uterine fibroid anteriorly measuring 1.7 cm. Discharge Plan Discharge Clinical Impression: Vaginal bleeding, Dysfunctional uterine bleeding, Anemia Patient Disposition: Home Condition: Stable Instructions: Antibiotic Form, Abnormal (Dysfunctional) Uterine Bleeding (ED) Additional Instructions: Please return to the ER with any worsening symptoms. Follow-up with your OBGYN the next week or two. Take all medications as prescribed, including regularly scheduled medications. Please do not take Ibuprofen at the same time as the Lysteda. Patient Language: Jamaican Prescriptions: No Action iron BYMOUTH Rx Instructions: 25mg daily albuterol sulfate [Ventolin HFA] 90 mcg/actuation HFA aerosol inhaler 1 inh inhalation Q4H PRN (Reason: chest tightness) Qty: 8.5 1RF cholecalciferol (vitamin D3) [Vitamin D3] 125 mcg (5,000 unit) tablet 5,000 unit PO DAILY OptiMag 125 125 mg magnesium capsule 100 mg PO DAILY magnesium L-threonate 48 mg magnesium (667 mg) capsule 48 mg PO DAILY Follow-up/Referrals: Naga Dalton MD [Primary Care Provider, Family Practice] Jose Armando Bear MD [Physician, [employer]] Time of Disposition: 13:45
--- NOTE | 2025-10-09 10:09 | PC.NURSE ---
Asked pt to provide urine sample for the doctor's orders. Pt states she just went to the bathroom and is unable to give sample at this time. States will try to give sample in a little bit.
[2025-10-09 10:12] LABS: Hematocrit 28.4 % (37.0-47.0); Hemoglobin 8.8 g/dL (12.0-15.0); Immature Granulocyte Percent A 0.6 % (0-0.5); Lymphocytes Absolute Auto 1.01 K/mm3 (0.9-3.2); Mean Corpuscular HGB Conc 31.0 g/dl (32-36); Mean Corpuscular Hemoglobin 27.9 pg (26-34); Mean Corpuscular Volume 90.2 fl (80-100); Nucleated Red Blood Cells Absolute Auto 0.000 K/mm3 (0.0-0.012); Nucleated Red Blood Cells Perc 0.0 % (0.0-0.2); Platelet Count Result 205 k/mm3 (150-375); Red Blood Count 3.15 M/mm3 (4.2-5.4); White Blood Count 3.5 K/mm3 (4.5-10.0)
[2025-10-09 10:35] LABS: INR 1.0; Prothrombin Time 13.2 Seconds (11.1-14.7)
[2025-10-09 10:36] LABS: Alanine Aminotransferase 18 U/L (6-35); Albumin Level 3.9 g/dL (3.5-5.1); Alkaline Phosphatase 49 U/L (38-126); Anion Gap 4 mmol/L (4-12); Aspartate Amino Transferase 33 U/L (14-36); Bilirubin,Total 0.5 mg/dL (0.2-1.3); Blood Urea Nitrogen 11 mg/dL (7-17); Calcium 9.1 mg/dL (8.4-10.2); Carbon Dioxide 26 mmol/L (22-30); Chloride 108 mmol/L (98-107); Estimated CRCL calculation 49 ml/min; Estimated Glomerular Filt Rate 53; Glucose 88 mg/dL (65-110); Potassium 4.0 mmol/L (3.4-5.0); Sodium 138 mmol/L (137-145); Total Protein 6.5 g/dL (6.3-8.2)
[2025-10-09 10:37] LABS: Partial Thromboplastin Time 29.6 Seconds (22.3-36.8)
[2025-10-09] MEDS: SODIUM CHLORIDE 0.9% IV 1,000 ML 999 ML IV CONT (11:16)
[2025-10-09 11:22] VITALS: BP 146/73; PULSE 67; RESP 14; O2SAT 100
[2025-10-09 11:32] LABS: BEDSIDEPREGUCG Negative (Negative)
[2025-10-09 11:52] LABS: Appearance Urine Turbid (Clear)
[2025-10-09 12:43] VITALS: BP 128/74; PULSE 63; RESP 16; O2SAT 100
[2025-10-09 14:15] VITALS: BP 126/71; PULSE 63; RESP 15; O2SAT 100
== END 2025-10-09 14:15 | disposition home or self-care (01) ==
PROVIDERS: Emergency Provider Registered Nurse; PCP Family Medicine
DX: N93.8 Other specified abnormal uterine and vaginal bleeding (principal); D64.9 Anemia, unspecified; D25.9 Leiomyoma of uterus, unspecified; R93.89 Abnormal findings on diagnostic imaging of other specified body structures
CPT/HCPCS: 36415; 76856; 80053; 81025; 85025; 85610; 85730; 96360; 99284; J7030